=== PATIENT | female | born 1955 | race Caucasian/White ===

== ENCOUNTER → 2017-01-08 | Outpatient (CLI) | payer MEDICAID ==
[2017-01-08 08:33] LABS: ALT 24 U/L (9-52); AST 21 U/L (14-36); Alkaline Phosphatase 50 U/L (38-126); Anion Gap 13 mmol/L; Blood Urea Nitrogen 20 mg/dL (7-17); Calcium 9.7 mg/dL (8.4-10.2); Carbon Dioxide 27 mmol/L (22-30); Chloride 101 mmol/L (98-107); Cholesterol 277 mg/dL (<200); Glucose 173 mg/dL (74-99); HDL Cholesterol 79 mg/dL (40-60); Non-African American GFR(MDRD) >60 (>60 ml/min/1.73 sqM); Potassium 4.1 mmol/L (3.5-5.1); Sodium 141 mmol/L (137-145); Total Bilirubin 0.7 mg/dL (0.2-1.3); Total Protein 7.7 g/dL (6.3-8.2); Triglycerides 108 mg/dL (<150)
[2017-01-08 08:37] LABS: CH 31.1; HCT 45.5 % (34.0-46.0); HDW 2.07; HGB 14.6 gm/dL (11.4-16.0); MCH 31.3 pg (25.0-35.0); MCV 97.8 fL (80.0-100.0); Mean Platelet Volume 6.9; RBC 4.66 m/uL (3.80-5.40); RDW 12.9 % (11.5-15.5); WBC 6.6 k/uL (3.8-10.6)
[2017-01-08 12:28] LABS: Hemoglobin A1C 6.9 % (4.2-6.1)
== END | disposition home or self-care (01) ==
LOC: LABWHC1 07:22
PROVIDERS: ATTEND Internal Medicine Critical Care Medicine
DX: I10 Essential (primary) hypertension (principal)
CPT/HCPCS: 36415; 80053; 80061; 82306; 83036; 84439; 84443; 85027

== ENCOUNTER → 2019-02-04 | Outpatient (CLI) | payer MEDICAID ==
[2019-02-04 09:50] LABS: Basophils % (A) 1 %; Eosinophils # (A) 0.2 k/uL (0-0.7); Eosinophils % (A) 3 %; HCT 45.5 % (34.0-46.0); HGB 14.6 gm/dL (11.4-16.0); Lymphocytes # (A) 1.1 k/uL (1.0-4.8); Lymphocytes % (A) 22 %; MCH 31.9 pg (25.0-35.0); MCHC 32.1 g/dL (31.0-37.0); MCV 99.2 fL (80.0-100.0); Mean Platelet Volume 6.8; Monocytes # (A) 0.4 k/uL (0-1.0); Monocytes % (A) 7 %; Neutrophils # (A) 3.2 k/uL (1.3-7.7); Neutrophils % (A) 63 %; Platelet Count 284 k/uL (150-450); RBC 4.59 m/uL (3.80-5.40); RDW 13.2 % (11.5-15.5); WBC 5.1 k/uL (3.8-10.6)
[2019-02-04 16:06] LABS: Albumin 4.5 g/dL (3.80-4.90); Albumin/Globulin Ratio 2.37 (1.60-3.17); Anion Gap 8.1 mmol/L (4.00-12.00); Calcium 9.7 mg/dL (8.7-10.3); Carbon Dioxide 27.9 mmol/L (21.6-31.8); Globulin 1.9 g/dL (1.6-3.3); LDL Cholesterol,Calculated 170.6 mg/dL (0.0-131.0); Potassium 4.5 mmol/L (3.5-5.5); Total Bilirubin 0.7 mg/dL (0.3-1.2); Total Protein 6.4 g/dL (6.2-8.2); VLDL Calculation 18.4 mg/dL (5.00-40.00)
[2019-02-04 16:12] LABS: T4, Free (Free Thyroxine) 1.5 ng/dL (0.80-1.80)
[2019-02-04 18:01] LABS: Hemoglobin A1C 6.7 % (4.0-6.0)
== END | disposition home or self-care (01) ==
LOC: LABWHC1 08:34
PROVIDERS: ATTEND Internal Medicine Critical Care Medicine
DX: E78.5 Hyperlipidemia, unspecified (principal); E11.9 Type 2 diabetes mellitus without complications; I10 Essential (primary) hypertension; K12.1 Other forms of stomatitis
CPT/HCPCS: 36415; 80053; 80061; 82306; 83036; 84439; 84443; 85025

== ENCOUNTER → 2020-03-08 | Outpatient (CLI) | payer BC ==
[2020-03-08 12:03] LABS: Basophils % (A) 0 %; Eosinophils # (A) 0.1 k/uL (0-0.7); Eosinophils % (A) 2 %; HGB 14.9 gm/dL (11.4-16.0); Lymphocytes # (A) 1.2 k/uL (1.0-4.8); Lymphocytes % (A) 22 %; MCH 31.9 pg (25.0-35.0); MCHC 32.4 g/dL (31.0-37.0); MCV 98.5 fL (80.0-100.0); Mean Platelet Volume 7.4; Monocytes # (A) 0.4 k/uL (0-1.0); Monocytes % (A) 6 %; Neutrophils # (A) 3.8 k/uL (1.3-7.7); Neutrophils % (A) 66 %; Platelet Count 258 k/uL (150-450); RBC 4.67 m/uL (3.80-5.40); RDW 12.3 % (11.5-15.5); WBC 5.7 k/uL (3.8-10.6)
[2020-03-08 19:36] LABS: African American GFR (CKD) 78.3 (60.0-200.0); Albumin 4.6 g/dL (3.80-4.90); Albumin/Globulin Ratio 2.19 (1.60-3.17); Anion Gap 10.5 mmol/L (4.00-12.00); BUN/Creat Ratio 26.67 Ratio (12.00-20.00); Calcium 9.8 mg/dL (8.7-10.3); Carbon Dioxide 29.5 mmol/L (21.6-31.8); Chol/HDL Ratio 4.16; Globulin 2.1 g/dL (1.6-3.3); LDL Cholesterol,Calculated 196.8 mg/dL (0.0-131.0); Non-African American GFR(CKD) 67.6 (60.0-200.0); Potassium 4.2 mmol/L (3.5-5.5); Total Bilirubin 0.6 mg/dL (0.3-1.2); Total Protein 6.7 g/dL (6.2-8.2); VLDL Calculation 18.2 mg/dL (5.00-40.00)
[2020-03-08 19:44] LABS: T4, Free (Free Thyroxine) 1.4 ng/dL (0.80-1.80)
[2020-03-08 21:16] LABS: Hemoglobin A1C 7.6 % (4.0-6.0)
== END | disposition home or self-care (01) ==
LOC: LABWHC1 09:56
PROVIDERS: ATTEND Internal Medicine Critical Care Medicine
DX: E11.9 Type 2 diabetes mellitus without complications (principal); E78.5 Hyperlipidemia, unspecified; I10 Essential (primary) hypertension; J44.9 Chronic obstructive pulmonary disease, unspecified; K12.1 Other forms of stomatitis
CPT/HCPCS: 36415; 80053; 80061; 82306; 83036; 84439; 84443; 85025; 86431

== ENCOUNTER → 2020-04-20 | Outpatient (CLI) | payer BC | END | disposition home or self-care (01) | LOC: CPPFTMAIN 11:45 | PROVIDERS: ATTEND Internal Medicine Critical Care Medicine | DX: J43.9 Emphysema, unspecified (principal) | CPT/HCPCS: 94060; 94726; 94729 ==

== ENCOUNTER → 2020-08-18 | Outpatient (CLI) | payer BC, MEDICARE ==
--- NOTE | 2020-08-22 09:57 | MR ---
EXAMINATION TYPE: MR knee LT wo con DATE OF EXAM: 08/18/2020 COMPARISON: None HISTORY: left knee pain TECHNIQUE: Multiplanar, multisequence imaging of the left knee is performed without IV contrast. Imag es are presented on 08/22/2020, previous dictation cannot be located. FINDINGS: MEDIAL MENISCUS: There is increased signal within the substance of the posterior horn medial meniscus . Findings could be related to degenerative change or internal tear. No communication with the articu lar surface is evident. Anterior horn medial meniscus appears intact. LATERAL MENISCUS: There is minimal increased signal within the substance of the posterior horn medial meniscus, likely on the basis of degenerative changes. Internal derangement or tear could be conside red. Anterior horn lateral meniscus is intact. CRUCIATE LIGAMENTS: The anterior and posterior cruciate ligaments are intact and unremarkable. COLLATERAL LIGAMENTS: The medial collateral ligament and lateral collateral ligament complex are inta ct and unremarkable. EXTENSOR MECHANISM: Some mild increased signal may be near the insertion of the proximal patellar ten don on the patella. Distal quadriceps tendon appears unremarkable EFFUSION: No significant suprapatellar joint effusion. POPLITEAL CYST: No popliteal/mckee cyst. TRICOMPARTMENT SPACES: Preserved CARTILAGE: Preserved BONE MARROW SIGNAL: There is some hyperintense rounded areas within the lateral femoral condyle. This could represent a bone cyst. OTHER: No additional significant abnormality is appreciated. IMPRESSION: 1. Posterior horn medial lateral menisci internal tear type I or degenerative changes. 2. Probable bone cyst within the lateral femoral condyle. 3. Mild increased signal of the insertion of the proximal patellar tendon mild sprain could be consid ered.
== END | disposition home or self-care (01) ==
LOC: RADMRIMAIN 10:32
PROVIDERS: ATTEND Orthopaedic Surgery
DX: R93.7 Abnormal findings on diagnostic imaging of other parts of musculoskeletal system (principal); M25.562 Pain in left knee

== ENCOUNTER → 2020-09-08 | Outpatient (CLI) | payer MEDICARE ==
[2020-09-08 10:33] LABS: Basophils % (A) 0 %; Eosinophils # (A) 0.1 k/uL (0-0.7); Eosinophils % (A) 2 %; HCT 44.9 % (34.0-46.0); HGB 14.9 gm/dL (11.4-16.0); Lymphocytes % (A) 14 %; MCH 31.9 pg (25.0-35.0); MCHC 33.2 g/dL (31.0-37.0); MCV 96.3 fL (80.0-100.0); Monocytes # (A) 0.4 k/uL (0-1.0); Monocytes % (A) 6 %; Neutrophils # (A) 5.2 k/uL (1.3-7.7); Neutrophils % (A) 75 %; Platelet Count 289 k/uL (150-450); RBC 4.66 m/uL (3.80-5.40); RDW 12.6 % (11.5-15.5)
[2020-09-08 15:26] LABS: Prothrombin Time 10.8 sec (9.9-11.9)
[2020-09-08 16:07] LABS: Hemoglobin A1C 6.4 % (4.0-6.0)
[2020-09-08 16:46] LABS: Anion Gap 9.3 mmol/L (4.00-12.00); Carbon Dioxide 29.7 mmol/L (21.6-31.8); Chol/HDL Ratio 3.24; LDL Cholesterol,Calculated 113.6 mg/dL (0.0-131.0); Potassium 5.3 mmol/L (3.5-5.5); VLDL Calculation 18.4 mg/dL (5.00-40.00)
== END | disposition home or self-care (01) ==
LOC: LABWHC1 09:34
PROVIDERS: ATTEND Internal Medicine Critical Care Medicine
DX: I10 Essential (primary) hypertension (principal); E78.5 Hyperlipidemia, unspecified; E11.9 Type 2 diabetes mellitus without complications; R53.83 Other fatigue
CPT/HCPCS: 36415; 80051; 80061; 82947; 83036; 85025; 85610

== ENCOUNTER → 2020-09-08 | Outpatient (CLI) | payer MEDICARE | END | disposition home or self-care (01) | LOC: LABPAT 09:36 | PROVIDERS: ATTEND Orthopaedic Surgery | DX: Z01.812 Encounter for preprocedural laboratory examination (principal) | CPT/HCPCS: 87070 ==

== ENCOUNTER 2020-09-27 11:45 | Day surgery (SDC) | payer MEDICARE ==
[2020-09-20 15:52] VITALS: BMI 20.3
--- NOTE | 2020-09-26 09:15 | HP ---
HISTORY AND PHYSICAL CHIEF COMPLAINT: Left knee pain. HISTORY OF PRESENT ILLNESS: The patient is a 65-year-old retired female who presents with progressive left knee pain secondary to osteoarthrosis for the past several years. It has worsened recently. She is having a difficult time with prolonged weightbearing activities and stairs. She has tried previous medications and injections with only partial temporary relief. PAST MEDICAL HISTORY: Significant for COPD, xwx-lbdxthg-mejwhgdph diabetes, hypertension, and arthritis. PAST SURGICAL HISTORY: Significant for appendectomy, cataract surgery, corneal transplant, hysterectomy, and bilateral oophorectomy. CURRENT MEDICATIONS: 1. Aleve. 2. Metoprolol. 3. Symbicort. 4. Combivent. 5. Hydrochlorothiazide. 6. Metformin. 7. [place]. ALLERGIES: She denies drug allergies. FAMILY HISTORY: Significant for stroke, diabetes, hypertension, and cancer. SOCIAL HISTORY: Significant for previous tobacco use. REVIEW OF SYSTEMS: Sixteen-point review of systems otherwise reviewed and is noncontributory. PHYSICAL EXAMINATION: On examination, the patient is approximately 5 feet 11 inches, 155 pounds of mesomorphic habitus. HEENT exam is nonfocal. NECK is supple. She has painless passive motion of her left hip. Straight leg raise is negative. Active motion left knee -4 to 145 degrees of flexion. She has a trace effusion. She is tender about the medial joint line. Collaterals are stable, Can is negative, Olivier's is equivocal. Her distal neurovascular appears intact in the left lower extremity. Previous x-rays of the left knee obtained in the office show significant joint space narrowing of all 3 compartments, subchondral sclerosis in the medial compartments noted. MRI report left knee shows evidence of a cystic area involving the posterior lateral femoral condyle in addition to significant joint space narrowing and cartilage loss. IMPRESSION: 1. Left knee severe tricompartmental osteoarthrosis. 2. History of chronic obstructive pulmonary disease. 3. History of dcd-kehlrym-wmjnsqhqc diabetes. RECOMMENDATIONS: I talked to the patient at length regarding her condition and treatment options. At this point, she remains quite symptomatic despite extensive previous conservative measures. After thorough discussion, she opts to proceed with surgery. We will plan to proceed with left total knee arthroplasty. Risks and benefits were discussed at length in layman's terms. The patient underwent preoperative medical evaluation by Dr. Barrientos. MMODL / IJN: [id number] /
[~2020-09-27 11:45] MED LIST: ACETAMINOPHEN TAB 500 MG TAB PO PRN; MELOXICAM 7.5 MG TAB PO PRN; ROPIVACAINE 246.25 MG, EPINEPHrine 0.5 MG, KETOROLAC 30 MG, cloNIDine HCL/PF 80 MCG, WA... MISCELLANE PRN; TRANEXAMIC ACID 1,000 MG in SODIUM CHLORIDE 0.9% 100 ML IVPB PRN
[2020-09-27] MEDS ORDERED: DEXAMETHASONE SOD PHOSPHATE 4 MG/ML 1 ML VIAL IV ONE (12:14)
[2020-09-27] MEDS ORDERED: LACTATED RINGERS 1,000 ML IV SCH (12:14)
[2020-09-27] MEDS ORDERED: LIDOCAINE 1% (10MG/ML) FOR IV START INTRADERMA PRN (12:14)
[2020-09-27] MEDS ORDERED: MIDAZOLAM 2 MG/2 ML VIAL IV PRN (12:14)
[2020-09-27] MEDS ORDERED: HYDROmorphone 0.5 MG/0.5 ML SYRINGE IVP PRN ×2 (12:14→15:10)
[2020-09-27] MEDS ORDERED: ONDANSETRON 4 MG/2 ML VIAL IVP ONE (12:14)
[2020-09-27 12:27] LABS: Glucose,Whole Blood 164 mg/dL (75-99)
[2020-09-27] MEDS ORDERED: MIDAZOLAM 2 MG/2 ML VIAL IVP ONE (12:33)
[2020-09-27] MEDS ORDERED: fentaNYL (PF) 50 MCG/ML 2 ML AMP IVP ONE (12:35)
[2020-09-27] MEDS ORDERED: MIDAZOLAM 2 MG/2 ML VIAL ONE (13:20)
[2020-09-27] MEDS ORDERED: SODIUM CHLORIDE 0.9% 100 ML BAG ONE (13:20)
[2020-09-27] MEDS ORDERED: TRANEXAMIC ACID 1,000 MG/10 ML VIAL ONE (13:20)
[2020-09-27] MEDS ORDERED: PHENYLEPHRINE 10 MG/ML VIAL ONE (13:20)
[2020-09-27] MEDS ORDERED: ePHEDrine SULFATE/0.9% NACL/PF 50 MG/5 ML SYRINGE IV ONE (13:20)
[2020-09-27] MEDS ORDERED: WATER FOR INJECTION, STERILE 10 ML VIAL IV ONE (13:20)
[2020-09-27] MEDS ORDERED: PROPOFOL 10 MG/ML 20 ML VIAL IV ONE (13:20)
[2020-09-27] MEDS ORDERED: ceFAZolin 3,000 MG in SODIUM CHLORIDE 0.9% IRRIGATIO 3,000 ML IRRIGATION ONE (13:56)
[2020-09-27] MEDS ORDERED: ROPIVACAINE 0.2%-NS ON-Q PUMP 1,090 MG, EMPTY PAIN BALL 1 EACH MISCELLANE PRN (13:56)
--- NOTE | 2020-09-27 13:58 | P.ANPRN ---
Procedure Note - Anesthesia - Nerve Block Performed Left Adductor Canal Time Out Performed: Yes (12:32) Date of Procedure: 09/27/20 Procedure Start Time: Procedure Stop Time: :47 Location of Patient: PreOp Indication: Acute Post-Operative Pain, Requested by Surgeon (Dr Woodson) Sedation Type: Sedate with meaningful contact maintained Preparation: Sterile Prep, Sterile Dressing Position: Supine Catheter: Indwelling Needle Types: Pajunk Needle Gauge: 21 Ultrasound used to visualize needle placement: Yes Ultrasound used to observe medication spread: Yes Injectate: 0.5% Ropivacaine (see comment for volume) (20cc) Blood Aspirated: No Pain Paresthesia on Injection Noted: No Resistance on Injection: Normal Image Stored and Saved: Yes Events: Uneventful and Well Tolerated
[2020-09-27] MEDS ORDERED: LACTATED RINGERS 1,000 ML IV ONE (14:21)
[2020-09-27] MEDS ORDERED: NALOXONE 0.4 MG/ML 1 ML VIAL IV PRN (15:10)
[2020-09-27] MEDS ORDERED: MAGNESIUM HYDROXIDE 2,400 MG/10 ML CUP PO PRN (15:10)
[2020-09-27] MEDS ORDERED: HYDROmorphone 1 MG/ML 1 ML SYRINGE IVP PRN (15:10)
[2020-09-27] MEDS ORDERED: ONDANSETRON 4 MG/2 ML VIAL IVP PRN (15:10)
[2020-09-27] MEDS ORDERED: traMADol 50 MG TAB PO PRN (15:10)
[2020-09-27] MEDS ORDERED: ACETAMINOPHEN TAB 325 MG TAB PO PRN (15:10)
--- NOTE | 2020-09-27 15:33 | P.OP ---
Date of Procedure: 09/27/20 Preoperative Diagnosis: Left knee severe tricompartmental osteoarthrosis Postoperative Diagnosis: Same Procedure(s) Performed: Left total knee arthroplastycementedcruciate retaining Implants: Depuy Attune size 6 cemented femoral component, size 6 cemented tibial component, 9 mm articular surface, 35 mm cemented patellar component. This is a cruciate retaining implant. Anesthesia: regional, local, spinal Surgeon: Juan Luis Woodson Microsystems Engineer #1: Taj Santos Estimated Blood Loss (ml): 50 Pathology: other (Bone fragments) Condition: stable Disposition: PACU Indications for Procedure: Patient is a 65-year-old female who presents with progressive/persistent left knee pain secondary to osteoporosis despite conservative measures. A discussion of the risks and benefits of operative intervention versus continued conservat charity measures was made with patient. She opted to proceed with surgery. Operative risks to include infection, neurovascular injury, development of blood clots, possible component loosening, possible component failure need for subsequent procedures was discussed. Informed consent was obtained. Operative Findings: As below Description of Procedure: The patient was brought to the operating room, and after induction of spinal anesthesia the left lower extremity was prepped and draped in a normal fashion. The tourniquet was inflated to 270 mmHg. A longitudinal incision extending 3 finger breaths above the superior pole of the patella extending to the medial aspect the tibial tubercle was then made. The skin and subcutaneous tissues were divided sharply. Electrocautery was used for hemostasis. A medial parapatellar arthrotomy was then performed. The medial soft tissues to include the superficial and deep portions of the medial collateral ligament as well as the medial hamstring tendons were elevated subperiosteally. The proximal medial tibia osteophytes were carefully removed. The patella was everted. The knee was flexed. A portion of the retropatellar fat pad was excised sharply. The anterior cruciate ligament was sacrificed. A starting hole was made in the distal femur 1 cm anterior to the posterior cruciate origin. An intramedullary femoral guide was gently inserted planning on 5 valgus distal cut with 9 mm distal resection. The cutting block was pinned in place. The distal cut was then made. The posterior referencing sizing guide was utilized. 3 of external rotation was built into the system and verified off the trans- epicondylar axis and the posterior condyles. I felt size 6 was most appro priate. The cutting block was pinned in place. The anterior, posterior, and chamfer cuts were then made. The bone fragments were removed. A sulcus cut was then made with the appropriate guide. The trial size 6 femoral component was then placed and was fully seated. There was good anterior to posterior and medial to lateral fit. The distal peg holes were then drilled. The trial component was then removed. Attention was then paid towards preparing the proximal tibia. An extra medullary guide was utilized in line with the tibial shaft and second metatarsal distally. A 7 posterior slope was planned. I planned on 2 mm resection from the medial compartment. The cutting block was pinned in place. The proximal tibial cut was then made. The bone was removed in one fragment. The remnants of the medial and lateral menisci were excised the capsule junction with electrocautery. The tibia sized most appropriately at size 6. The posterior osteophytes off the distal femur were carefully removed with a curved osteotome. The trial tibial and femoral components were placed along with a 9 millimeters articular surface. I was able to obtain full flexion and extension with good stability with varus and valgus stress. After several flexion and extension cycles, the tibial rotation was marked with electrocautery in line with the medial one third of the tibial tubercle. Attention was then paid towards preparing the patella. A patella reamer was utilized taking this down to 14 mm of bone stock. A good flush cut was made. The patella sized most appropriately at 35 millimeters. The peg holes were then drilled. The trial component was placed. The knee was taken through a range of motion. I had good patellofemoral tracking with no hands technique. The trial components were then removed. The tibia was prepared in the appropriate rotation with appropriate drill and keel punch. The flexion and extension gaps were checked and felt to be symmetric. The posterior soft tissues were injected with ropivacaine. The bony surfaces were prepared with pulsatile lavage and dried. The deep tibial component was then cemented in place and was fully seated. Excess cement was removed. The femoral component was cemented in place and was fully seated. Again excess cement was removed. The trial 9 millimeters surface was then inserted in the knee was put in full extension. The patella component was cemented in place. After the cement had sufficiently hardened, the knee was again taken through a range of motion. Again there was good stability in flexion and extension with varus and valgus stress. The trial articular surface was then removed. The final articular surface was placed and was impacted. Care was taken to avoid any soft tissue interposition. Pulsatile lavage was again utilized. The tourniquet was deflated with approximately 60 minutes total tourniquet time. There was minimal drainage therefore a deep drain was not placed. The medial parapatellar arthrotomy was then closed with #2 Ethibond suture. The subcutaneous tissues were reapproximated interrupted 2-0 Vicryl sutures. The skin was reapproximated with 3-0 subarticular strata fix suture. Skin tape and adhesive was applied. A sterile dressing was applied. The patient was then awoken from sedation and transferred to recovery room in good condition. Blood loss was estimated at 50 milliliters. No complications were incurred. Sponge and needle counts were correct at the end the case. Param ALBERTO assisted during the major components this case to include exposure, bone resection, and implantation.
--- NOTE | 2020-09-27 16:04 | XR ---
EXAMINATION TYPE: XR knee limited LT DATE OF EXAM: 09/27/2020 CLINICAL HISTORY: Left knee pain and arthritis status post total knee replacement. TECHNIQUE: Portable AP and crosstable lateral views of the left knee are obtained immediately postop eratively. COMPARISON: Outside left knee x-ray April 21, 2020 FINDINGS: Metallic hardware from total left knee arthroplasty is seen and appears satisfactory in al ignment and position. There is evidence of recent surgery with diffuse subcutaneous gas and soft tis jacob swelling noted. [place] osseous structures are somewhat demineralized. IMPRESSION: METALLIC HARDWARE FROM TOTAL LEFT KNEE ARTHROPLASTY IS SATISFACTORY IN ALIGNMENT.
[2020-09-27 16:07] LABS: Glucose,Whole Blood 94 mg/dL (75-99)
[2020-09-27] MEDS: LACTATED RINGERS 1,000 ML IV SCH (16:12)
[2020-09-27 17:11] LABS: Glucose,Whole Blood 112 mg/dL (75-99)
[2020-09-27] MEDS: HYDROcodone/APAP 7.5-325MG 1 EACH TAB PO PRN ×2 (18:36→22:30)
[2020-09-27] MEDS: METOPROLOL TARTRATE 50 MG TAB PO SCH (20:42)
[2020-09-27] MEDS: SYMBICORT 160-4.5 MCG INHALER INHALATION SCH (20:47)
[2020-09-27] MEDS: IPRATROPIUM-ALBUTEROL 3 ML NEB INHALATION SCH (20:47)
[2020-09-27] MEDS ORDERED: SENNOSIDES-DOCUSATE SODIUM 1 EACH TAB PO SCH (21:00)
[2020-09-27] MEDS ORDERED: ATORVASTATIN 40 MG TAB PO SCH (21:00)
[2020-09-27 22:26] LABS: Glucose,Whole Blood 208 mg/dL (75-99)
[2020-09-28 02:55] VITALS: RESP 17
[2020-09-28] MEDS: HYDROcodone/APAP 7.5-325MG 1 EACH TAB PO PRN ×2 (05:30→11:22)
[2020-09-28 06:57] LABS: Glucose,Whole Blood 136 mg/dL (75-99)
--- NOTE | 2020-09-28 07:03 | P.PN ---
Progress Note - Text Progress Note Date: 09/28/20 Patient was seen at bedside at 645 AM. Patient is postop day 1 from left total knee replacement with adductor canal catheter placed for pain . Ropivacaine 0.2% infusion running at 8 ml per hour. VAS score is 1. Patient denies side effects. Lower extremity sensation and motor function is intact. Patient has ambulated. Dressing clean dry and intact over catheter site
[2020-09-28 07:08] LABS: Basophils % (A) 0 %; Eosinophils # (A) 0.1 k/uL (0-0.7); Eosinophils % (A) 1 %; HCT 34.5 % (34.0-46.0); Lymphocytes # (A) 1.4 k/uL (1.0-4.8); Lymphocytes % (A) 13 %; MCH 31.1 pg (25.0-35.0); MCV 97.2 fL (80.0-100.0); Mean Platelet Volume 7.3; Monocytes # (A) 0.7 k/uL (0-1.0); Monocytes % (A) 6 %; Neutrophils # (A) 8.3 k/uL (1.3-7.7); Neutrophils % (A) 78 %; Platelet Count 219 k/uL (150-450); RBC 3.54 m/uL (3.80-5.40); RDW 12.5 % (11.5-15.5); WBC 10.7 k/uL (3.8-10.6)
[2020-09-28] MEDS ORDERED: PANTOPRAZOLE 40 MG TABLET PO SCH (07:30)
[2020-09-28 07:35] VITALS: BP 116/71; TEMP 98.3
[2020-09-28] MEDS: METOPROLOL TARTRATE 50 MG TAB PO SCH (07:52)
[2020-09-28] MEDS: IPRATROPIUM-ALBUTEROL 3 ML NEB INHALATION SCH ×2 (07:56→11:29)
[2020-09-28] MEDS: SYMBICORT 160-4.5 MCG INHALER INHALATION SCH (07:56)
[2020-09-28] MEDS ORDERED: NAPROXEN 250 MG TAB PO SCH (09:00)
[2020-09-28] MEDS ORDERED: CHOLECALCIFEROL 1,000 UNIT TAB PO SCH (09:00)
[2020-09-28] MEDS ORDERED: metFORMIN 500 MG TAB PO SCH (09:00)
[2020-09-28] MEDS ORDERED: LORATADINE-PSEUDOEPH 5-120 MG 1 EACH TAB.ER.12H PO SCH (09:00)
[2020-09-28] MEDS ORDERED: ENOXAPARIN 30 MG/0.3 ML SYRINGE SQ SCH (09:00)
[2020-09-28] MEDS ORDERED: guaiFENesin 600 MG TABLET.ER PO SCH (09:00)
[2020-09-28 09:57] LABS: African American GFR (CKD) 54.9 (60.0-200.0); Anion Gap 12.4 mmol/L (4.00-12.00); BUN/Creat Ratio 19.17 Ratio (12.00-20.00); Calcium 8.8 mg/dL (8.7-10.3); Carbon Dioxide 26.6 mmol/L (21.6-31.8); Non-African American GFR(CKD) 47.4 (60.0-200.0); Potassium 4.2 mmol/L (3.5-5.5)
--- NOTE | 2020-09-28 10:18 | P.PN ---
Subjective Progress Note Date: 09/28/20 Principal diagnosis: Status post left total knee arthroplasty Patient is evaluated today at bedside, she is resting comfortably. She did very well with physical therapy. Her pain is controlled with current medication. Currently having no chest pain, shortness of breath, fever chills, nausea or vomiting. Objective - Vital Signs Vital signs: Vital Signs Temp 98.3 F 09/28/20 07:34 Pulse 84 09/28/20 08:09 Resp 17 09/28/20 07:34 BP 116/71 09/28/20 07:34 Pulse Ox 93 L 09/28/20 02:00 Intake & Output 09/27/20 09/28/20 09/28/20 18:59 06:59 18:59 Intake Total 1921 400 Output Total 50 Balance 1871 400 Weight 64.5 kg Intake: IV 1920 Intake, IV Titration 100 Amount ceFAZolin 2 gm In Sodium 100 Chloride 0.9% 50 ml @ 100 mls/hr IVPB Q8H AMINA Rx#: [id number] Oral 300 Output: Estimated Blood Loss 50 Other: # Voids 2 - Exam Left lower extremity: Incision is clean, dry, and intact. The exofin fusion tape is in good condition. There is minimal soft tissue swelling and ecchymosis surrounding the medial and lateral aspects of the incision. Calf is soft, no tenderness with palpation. Plantar flexion, dorsiflexion, EHL, FHL are intact. Sensory exam to light touch throughout the extremity is intact, dorsal pedis pulses 2+. - Labs CBC & Chem 7: 09/28/20 06:17 09/28/20 06:17 Labs: Abnormal Lab Results - Last 24 Hours (Table) 09/27/20 09/27/20 09/27/20 Range/Units 12:22 17:09 22:24 WBC (3.8-10.6) k/uL RBC (3.80-5.40) m/uL Hgb (11.4-16.0) gm/dL Neutrophils # (1.3-7.7) k/uL Anion Gap (4.00-12.00) mmol/L Est GFR (CKD-EPI)AfAm (60.0-200.0) Est GFR (CKD-EPI)NonAf (60.0-200.0) Glucose (70-110) mg/dL POC Glucose (mg/dL) 164 H 112 H 208 H (75-99) mg/dL 09/28/20 09/28/20 09/28/20 Range/Units 06:17 06:17 06:56 WBC 10.7 H (3.8-10.6) k/uL RBC 3.54 L (3.80-5.40) m/uL Hgb 11.0 L D (11.4-16.0) gm/dL Neutrophils # 8.3 H (1.3-7.7) k/uL Anion Gap 12.40 H (4.00-12.00) mmol/L Est GFR (CKD-EPI)AfAm 54.9 L (60.0-200.0) Est GFR (CKD-EPI)NonAf 47.4 L (60.0-200.0) Glucose 144 H (70-110) mg/dL POC Glucose (mg/dL) 136 H (75-99) mg/dL Assessment and Plan Assessment: Status post left total knee arthroplasty Plan: Pain control, continue with oral medication, plan for discharge home on [place] 7.5 mg/325 mg DVT prophylaxis, aspirin 81 mg twice a day for a month Home health care at discharge Medical recommendations Wound care instructions were discussed, icing and elevating techniques discussed Plan for discharge home today Time with Patient: Less than 30
[2020-09-28] MEDS: LACTATED RINGERS 1,000 ML IV SCH (10:21)
--- NOTE | 2020-09-28 10:21 | P.DS ---
Providers Date of admission: 09/27/2020 Expected date of discharge: 09/28/20 Attending physician: Juan Luis Woodson Consults: 09/27/20 15:10 Consult Physician Routine Consulting Provider: Gabriel Barrientos Reason/Comments: medical management Do you want consulting provider notified?: Yes Primary care physician: Gabriel Barrientos Hospital Course: Date of admission: 09/27/2020 Date of discharge: 09/28/2020 Admission diagnosis: Status post left total knee arthroplasty Discharge diagnosis: Same Attending physician: Dr. Woodson Surgical procedures: Left total knee arthroplasty Brief history: Patient is a 65-year-old female with a history of progressive primary left knee osteoarthritis. At this point patient has failed conservative treatment measures and has opted to proceed with a elective left total knee arthroplasty. Hospital course: Details of patient's surgery can be found in operative report. Patient tolerated the procedure well and was subsequently transported to orthopedic floor. Patient's orthopeidc and medical care was provided daily. Patient had daily laboratory tests performed for evaluation of overall blood counts. Patient had daily physical therapy to include strengthening range of motion as well as education with walker ambulation. Patient was treated with Lovenox for their postoperative DVT prophylaxis during their inpatient stay. Patient was noted to have a relatively uneventful postoperative course. Patient reported satisfactory pain control with oral pain medications by postoperative day 0. Patient showed satisfactory progress with physical therapy. Patient moved steadily through the program and had no difficulty meeting the goals by postoperative day 1. Given patient's otherwise satisfactory course and having met physical therapy goals, plan is to discharge patient home on postoperative day 1. Discharge condition/disposition: Patient will be discharged home in stable condition. Discharge medications: Instructions are given on resumption of patient's normal daily medications per primary care recommendation, in addition patient will be prescribed [place] 7.5 mg/325 mg, Colace 100 mg, aspirin 81 mg. Discharge instructions: 1. Wound care and infection precautions, keep incision dry and covered while showering, no lotions, creams, moisturizers. No soaking, tubs, pools, hottubs. Do not scrub over the incision. 2. Weight-bear as tolerated with walker / cane until follow-up. 3. Ice and elevate when necessary. Do not exceed 20 minutes per hour with ice pack. 4. Utilize compression sleeve until seen at first follow up appointment. 5. Visiting nursing care. 6. Home physical therapy including home CPM. 7. Pain meds and anticoagulants per prescription. 8. Pain medication has potential to cause constipation. Increase oral fluid and fiber intake. Contact primary care provider if you have not had a bowel movement within 48 hours after discharge 9. No anti-inflammatory medication until discussed at first post operative visit, this including Motrin, Aleve, Mobic, Diclofenac. 10. Follow up in office at 2 weeks postop with Param Santos PA-C 11. Follow up with your primary care doctor 7-10 days after discharge. 12. Contact [facility] with any questions, . Procedures: Left total knee arthroplasty Patient Condition at Discharge: Good Plan - Discharge Summary Discharge Rx Participant: Yes New Discharge Prescriptions: New Aspirin [Adult Low Dose Aspirin EC] 81 mg PO BID #60 tablet. Docusate [Colace] 100 mg PO DAILY #30 capsule HYDROcodone/APAP 7.5-325MG [[place] 7.5] 1 - 2 each PO Q6HR PRN #42 tab PRN Reason: Pain Discontinued HYDROcodone/APAP 5-325MG [[place] 5-325] 1 tab PO Q4-6H PRN PRN Reason: Pain No Action Loratadine-Pseudoeph 10-240 mg [Claritin-D 24 Hour] 1 tab PO DAILY guaiFENesin [Mucinex] 1,200 mg PO DAILY Ipratropium/Albuterol Sulfate [Combivent Respimat Inhaler] 1 puff INHALATION QID Naproxen Sodium [Aleve] 220 mg PO DAILY Cholecalciferol [Vitamin D3 (25 Mcg = 1000 Iu)] 1,000 unit PO DAILY Budesonide-Formot 160-4.5 Mcg [Symbicort 160-4.5 Mcg Inhaler] 2 puff INHALATION BID metFORMIN HCL 1,000 mg PO BID hydroCHLOROthiazide 50 mg PO DAILY Simvastatin [Zocor] 80 mg PO HS Omeprazole 20 mg PO DAILY Metoprolol Tartrate [Lopressor] 150 mg PO BID Discharge Medication List Budesonide-Formot 160-4.5 Mcg [Symbicort 160-4.5 Mcg Inhaler] 2 puff INHALATION BID 09/20/20 [History] Cholecalciferol [Vitamin D3 (25 Mcg = 1000 Iu)] 1,000 unit PO DAILY 09/20/20 [History] Ipratropium/Albuterol Sulfate [Combivent Respimat Inhaler] 1 puff INHALATION QID 09/20/20 [History] Loratadine-Pseudoeph 10-240 mg [Claritin-D 24 Hour] 1 tab PO DAILY 09/20/20 [History] Metoprolol Tartrate [Lopressor] 150 mg PO BID 09/20/20 [History] Naproxen Sodium [Aleve] 220 mg PO DAILY 09/20/20 [History] Omeprazole 20 mg PO DAILY 09/20/20 [History] Simvastatin [Zocor] 80 mg PO HS 09/20/20 [History] guaiFENesin [Mucinex] 1,200 mg PO DAILY 09/20/20 [History] hydroCHLOROthiazide 50 mg PO DAILY 09/20/20 [History] metFORMIN HCL 1,000 mg PO BID 09/20/20 [History] Aspirin [Adult Low Dose Aspirin EC] 81 mg PO BID #60 tablet.dr 09/28/20 [Rx] Docusate [Colace] 100 mg PO DAILY #30 capsule 09/28/20 [Rx] HYDROcodone/APAP 7.5-325MG [[place] 7.5] 1 - 2 each PO Q6HR PRN #42 tab 09/28/20 [Rx] Follow up Appointment(s)/Referral(s): [facility], [NON-STAFF] - As Needed Taj Santos PAC [PHYSICIAN DESSERT CUP MACHINE FEEDER] - 2 Weeks Activity/Diet/Wound Care/Special Instructions: Orthopedic Discharge Instructions: 1. Wound care and infection precautions, keep incision dry and covered while showering, no lotions, creams, moisturizers. No soaking, pools, hot tubs. Do not scrub over incision. 2. Weight-bear as tolerated with walker / cane until follow-up. 3. Ice and elevate when necessary. Do not exceed 20 minutes per hour with ice pack. 4. Utilize compression sleeve until seen at first follow up appointment. 5. Pain meds and anticoagulants per prescription. 6. Pain medication has potential to cause constipation. Increase oral fluid and fiber intake. Contact primary care provider if you have not had a bowel movement within 48 hours after discharge. 7. No anti-inflammatory medication until discussed at first post operative visit, this including Motrin, Aleve, Mobic, Diclofenac. 8. Follow up in office at 2 weeks postop with Param Santos PA-C 9. Follow up with your primary care doctor 7-10 days after discharge. 10. Contact [facility] with any questions, . Discharge Disposition: HOME WITH HOME HEALTH SERVICES
[2020-09-28 11:35] LABS: Glucose,Whole Blood 223 mg/dL (75-99)
[2020-09-28 11:44] VITALS: PULSE 82
[2020-09-28] MEDS ORDERED: INSULIN ASPART (NovoLOG) 100 UNIT/ML VIAL SQ SCH (12:30)
--- NOTE | 2020-09-28 16:04 | P.CONS ---
History of Present Illness - Reason for Consult Consult date: 09/28/20 Medical management COPD, diabetes mellitus type II, hypertension Requesting physician: Juan Luis Woodson - History of Present Illness This is a 65-year-old female who was recently admitted under orthopedic services Dr. Woodson and consulted for medical management as patient has a history of chronic obstructive pulmonary disease, diabetes mellitus type 2, hypertension, and arthritis. Patient underwent left total knee arthroplasty and tolerated the procedure well. Blood pressure medications were resumed and patient was monitored closely with Accu-Cheks before meals at bedtime and metformin was held and patient was placed on sliding scale although blood sugars are well- controlled not requiring any insulin. Patient will resume home medications upon discharge. Patient does follow with Dr. Gabriel Barrientos in the outpatient setting as her primary care physician. Patient is up and walking with a walker with physical therapy. Patient states she is going to stay with her family member for a few days to assist her with ADLs. Patient does have a pain pump to the left knee and will be following up with orthopedics in the outpatient setting. Patient states she has inhalers and follows regularly with Dr. Barrientos. Incentive spirometer at the bedside and instructed patient to continue using at least 10 times every hour while awake even in the outpatient setting. Discussed with the patient about increasing activity as tolerated. Currently patient denies any chest pain, shortness of breath, or palpitations. Patient is afebrile. No reports of nausea or vomiting and patient has been tolerating diet. Patient also reports to passing gas with no reports of bowel movements this morning. Review of Systems All systems: negative Constitutional: Denies chills, Denies fever Ears, nose, mouth and throat: Denies headache, Denies sore throat Cardiovascular: Denies chest pain, Denies shortness of breath Respiratory: Denies cough Gastrointestinal: Denies abdominal pain, Denies diarrhea, Denies nausea, Denies vomiting Genitourinary: Denies dysuria, Denies hematuria Musculoskeletal: Denies myalgias Integumentary: Denies pruritus, Denies rash Neurological: Denies numbness, Denies weakness Psychiatric: Denies anxiety, Denies depression Endocrine: Denies fatigue, Denies weight change Past Medical History Past Medical History: COPD, Diabetes Mellitus, GERD/Reflux, Hyperlipidemia, Hypertension, Osteoarthritis (OA), Skin Disorder Additional Past Medical History / Comment(s): Psorasis. Varicose veins. History of Any Multi-Drug Resistant Organisms: None Reported Past Surgical History: Appendectomy, Hysterectomy Additional Past Surgical History / Comment(s): Right cataract surgery, right cornea transplant, 8 other surgeries on right eye. Past Anesthesia/Blood Transfusion Reactions: No Reported Reaction Past Psychological History: No Psychological Hx Reported Smoking Status: Former smoker Past Alcohol Use History: Rare Additional Past Alcohol Use History / Comment(s): Quit smoking 16 yrs ago. Past Drug Use History: Marijuana Additional Drug Use History / Comment(s): Uses Edibles at hs. Aware no use 24 hrs prior to procedure. - Past Family History Brother(s) Family Medical History: Cancer Additional Family Medical History / Comment(s): Lung cancer. Medications and Allergies Home Medications Medication Instructions Recorded Confirmed Type Budesonide-Formot 160-4.5 Mcg 2 puff INHALATION BID 09/20/20 09/27/20 History [Symbicort 160-4.5 Mcg Inhaler] Cholecalciferol [Vitamin D3 (25 1,000 unit PO DAILY 09/20/20 09/27/20 History Mcg = 1000 Iu)] Ipratropium/Albuterol Sulfate 1 puff INHALATION QID 09/20/20 09/27/20 History [Combivent Respimat Inhaler] Loratadine-Pseudoeph 10-240 mg 1 tab PO DAILY 09/20/20 09/20/20 History [Claritin-D 24 Hour] Metoprolol Tartrate [Lopressor] 150 mg PO BID 09/20/20 09/27/20 History Omeprazole 20 mg PO DAILY 09/20/20 09/20/20 History Simvastatin [Zocor] 80 mg PO HS 09/20/20 09/20/20 History guaiFENesin [Mucinex] 1,200 mg PO DAILY 09/20/20 09/20/20 History hydroCHLOROthiazide 50 mg PO DAILY 09/20/20 09/20/20 History metFORMIN HCL 1,000 mg PO BID 09/20/20 09/20/20 History Aspirin [Adult Low Dose Aspirin EC] 81 mg PO BID #60 tablet. 09/28/20 Rx Docusate [Colace] 100 mg PO DAILY #30 capsule 09/28/20 Rx HYDROcodone/APAP 7.5-325MG [[place] 1 - 2 each PO Q6HR PRN #42 tab 09/28/20 Rx 7.5] Allergies Allergy/AdvReac Type Severity Reaction Status Date / Time No Known Allergies Allergy Verified 09/27/20 12:18 Physical Exam Vitals: Vital Signs Temp Pulse Pulse Pulse Resp BP Pulse Ox 09/28/20 11:43 82 09/28/20 11:32 86 09/28/20 08:09 84 09/28/20 07:59 78 09/28/20 07:34 98.3 F 74 17 116/71 09/28/20 02:00 98.1 F 77 17 141/79 93 L 09/27/20 21:05 83 09/27/20 20:47 83 09/27/20 20:05 20 09/27/20 19:20 98.4 F 82 16 143/77 92 L 09/27/20 18:51 85 154/80 95 09/27/20 18:21 84 154/83 95 09/27/20 17:51 87 135/72 95 09/27/20 17:36 86 164/71 94 L 09/27/20 17:21 81 149/84 94 L 09/27/20 17:06 75 153/85 96 09/27/20 16:51 74 155/88 94 L 09/27/20 16:36 71 20 145/86 94 L 09/27/20 16:15 62 16 144/81 95 09/27/20 16:00 67 16 144/74 93 L Intake and Output 09/28/20 09/28/20 09/28/20 06:59 14:59 22:59 Intake Total 400 Balance 400 Intake: Intake, IV Titration 100 Amount ceFAZolin 2 gm In Sodium 100 Chloride 0.9% 50 ml @ 100 mls/hr IVPB Q8H [facility] Rx#: [id number] Oral 300 Other: # Voids 2 Gen: This is a 65-year-old female awake, alert and oriented 3, well-developed, well-nourished. Temp is 98.3F, pulse is 84, respirations are 17, blood pressure is 116/71, oxygen saturation is 91% on room air HEENT: Head is atraumatic, normocephalic. Pupils equal, round. Sclerae is anicteric. NECK: Supple. No JVD. No lymphadenopathy. No thyromegaly. LUNGS: Diminished breath sounds bilaterally with no wheezing or rhonchi noted. No intercostal retractions. HEART: S1, S2 are muffled. ABDOMEN: Soft. Bowel sounds are present. No masses. No tenderness. EXTREMITIES: No pedal edema. No calf tenderness. Left knee surgical dressing is dry and intact with pain pump noted NEUROLOGICAL: Patient is awake, alert and oriented x3. Cranial nerves 2 through 12 are grossly intact. Results CBC & Chem 7: 09/28/20 06:17 09/28/20 06:17 Labs: Abnormal Lab Results - Last 24 Hours (Table) 09/27/20 09/27/20 09/28/20 Range/Units 17:09 22:24 06:17 WBC 10.7 H (3.8-10.6) k/uL RBC 3.54 L (3.80-5.40) m/uL Hgb 11.0 L D (11.4-16.0) gm/dL Neutrophils # 8.3 H (1.3-7.7) k/uL Anion Gap (4.00-12.00) mmol/L Est GFR (CKD-EPI)AfAm (60.0-200.0) Est GFR (CKD-EPI)NonAf (60.0-200.0) Glucose (70-110) mg/dL POC Glucose (mg/dL) 112 H 208 H (75-99) mg/dL 09/28/20 09/28/20 09/28/20 Range/Units 06:17 06:56 11:34 WBC (3.8-10.6) k/uL RBC (3.80-5.40) m/uL Hgb (11.4-16.0) gm/dL Neutrophils # (1.3-7.7) k/uL Anion Gap 12.40 H (4.00-12.00) mmol/L Est GFR (CKD-EPI)AfAm 54.9 L (60.0-200.0) Est GFR (CKD-EPI)NonAf 47.4 L (60.0-200.0) Glucose 144 H (70-110) mg/dL POC Glucose (mg/dL) 136 H 223 H (75-99) mg/dL Assessment and Plan Assessment: Status post left total knee arthroplasty Diabetes mellitus type 2 Hypertension Hyperlipidemia COPD not in acute exacerbation DVT prophylaxis GI prophylaxis Plan: Continue current medications, management, and symptomatic treatment. PT/OT to evaluate the patient and patient has been up and walking with a walker with no difficulties. Pain management per primary service. Instructed the patient to continue using incentive spirometer every hour at least 10 times while awake. Patient's blood sugars have been slightly on the lower side and instructed to continue monitoring Accu-Cheks before meals at bedtime and keep a diary for primary care follow-up. Also instructed the patient to increase activity slowly as tolerated. Patient reports passing gas although no reports of bowel movements at this time. Patient is tolerating diet with no nausea or vomiting noted. Will continue to follow along with orthopedic surgery during hospitalization. Home medications resumed. Further recommendations to follow. Patient states she is being discharged today. Thank you for this consultation.
== END 2020-09-28 12:29 | disposition home health service (06) ==
LOC: OR 11:45 → 4SSUR 15:42 → OR 09-28 12:29
PROVIDERS: ATTEND Orthopaedic Surgery
DX: M17.12 Unilateral primary osteoarthritis, left knee (principal); M25.762 Osteophyte, left knee; I10 Essential (primary) hypertension; E78.5 Hyperlipidemia, unspecified; J44.9 Chronic obstructive pulmonary disease, unspecified; E11.9 Type 2 diabetes mellitus without complications; K21.9 Gastro-esophageal reflux disease without esophagitis; M19.90 Unspecified osteoarthritis, unspecified site; M81.0 Age-related osteoporosis without current pathological fracture; L40.9 Psoriasis, unspecified; Z79.51 Long term (current) use of inhaled steroids; Z79.84 Long term (current) use of oral hypoglycemic drugs; Z79.899 Other long term (current) drug therapy; Z87.891 Personal history of nicotine dependence; Z90.710 Acquired absence of both cervix and uterus; Z90.49 Acquired absence of other specified parts of digestive tract; I83.90 Asymptomatic varicose veins of unspecified lower extremity; Z80.1 Family history of malignant neoplasm of trachea, bronchus and lung; Z98.49 Cataract extraction status, unspecified eye; Z90.722 Acquired absence of ovaries, bilateral
CPT/HCPCS: 94640 ×4; 97110; 97161; 64448; 76942; 80048; 85025; 73560; 27447; C1713; C1776; J2250; J0171; J1100; J0690 ×3; J2405; J3010; J1885; J1650; J2795 ×2; J0735; 88300

== ENCOUNTER 2021-05-31 07:20 | Day surgery (SDC) | payer MEDICARE ==
[2021-05-26 13:56] VITALS: BMI 16.7
[~2021-05-31 07:20] MED LIST changes: -ACETAMINOPHEN TAB 500 MG TAB PO PRN; +LACTATED RINGERS 1,000 ML IV SCH; +LIDOCAINE 1% (10MG/ML) FOR IV START INTRADERMA PRN; -MELOXICAM 7.5 MG TAB PO PRN; -ROPIVACAINE 246.25 MG, EPINEPHrine 0.5 MG, KETOROLAC 30 MG, cloNIDine HCL/PF 80 MCG, WA... MISCELLANE PRN; -TRANEXAMIC ACID 1,000 MG in SODIUM CHLORIDE 0.9% 100 ML IVPB PRN
[2021-05-31 07:55] LABS: Glucose,Whole Blood 163 mg/dL (75-99)
[2021-05-31 07:59] VITALS: TEMP 97.8
[2021-05-31] MEDS ORDERED: LACTATED RINGERS 1,000 ML IV ONE (08:00)
[2021-05-31] MEDS ORDERED: PROPOFOL 10 MG/ML 20 ML VIAL IV ONE (08:16)
[2021-05-31] MEDS ORDERED: LIDOCAINE 1% INJ 10MG/ML (20 ML MDV) ONE (08:16)
[2021-05-31 08:42] LABS: ALT 13 U/L (4-34); AST 21 U/L (14-36); African American GFR (CKD) 74 (>60 ml/min/1.73 sqM); Alkaline Phosphatase 47 U/L (38-126); Anion Gap 15 mmol/L; Blood Urea Nitrogen 17 mg/dL (7-17); Calcium 9.7 mg/dL (8.4-10.2); Carbon Dioxide 28 mmol/L (22-30); Chloride 97 mmol/L (98-107); Glucose 178 mg/dL (74-99); Non-African American GFR(CKD) 64 (>60 ml/min/1.73 sqM); Potassium 3.6 mmol/L (3.5-5.1); Sodium 140 mmol/L (137-145); Total Bilirubin 0.6 mg/dL (0.2-1.3); Total Protein 7.8 g/dL (6.3-8.2)
--- NOTE | 2021-05-31 08:46 | P.PCN ---
Date of Procedure: 05/31/21 Procedure(s) Performed: Brief history: Patient is a pleasant 65-year-old white female scheduled for an elective upper endoscopy as well as colonoscopy as a part of evaluation of early satiety, abdominal bloating, nausea and screening for colorectal neoplasia. Procedure performed: Esophagogastroduodenoscopy biopsy Colonoscopy with snare polypectomy Preoperative diagnosis: Abdominal pain/abdominal bloating and early satiety and progressive weight loss of 20 pounds Screening for colon cancer Anesthesia: MAC Procedure: After informed consent was obtained from the patient was brought into the endoscopy unit and IV sedation was administered by anesthesia under continuous monitoring. Initially upper endoscopy was done. The Olympus GF 160 video endoscope was inserted inserted into the mouth and esophagus intubated without any difficulty and was gradually advanced into the stomach and duodenum and carefully examined. The bulb and second part of the duodenum appeared normal. Biopsies were done from the duodenum to rule out celiac disease The scope was then withdrawn into the stomach adequately insufflated with air and upon careful examination the antrum diffuse gastritis and biopsies were done from this area. The body, cardia and fundus appeared normal. The scope was then withdrawn into the esophagus. The GE junction was located at 40 cm to the incisors. It appeared regular with no erythema erosions or ulcerations. Rest of the esophagus appeared normal. Patient tolerated the procedure well. At this time the patient continued to remain sedation. Initial digital rectal examination was normal. Olympus CF 160 video colonoscope was then inserted into the rectum and gradually advanced to the cecum without any difficulty. Careful examination was performed as the scope was gradually being withdrawn. The prep was excellent. The cecum, ascending colon, appeared normal. In the transverse colon there was a 5 mm polyp removed by snare polypectomy. In the descending colon there was a 5 mm polyp removed by snare polypectomy. In the sigmoid colon there was a 3 mm polyp removed by snare polypectomy. Rest of the transverse colon, descending colon, sigmoid colon and rectum appeared normal. Retroflexion was performed in the rectum ansmall internal hemorrhoidsere noted. Patient tolerated the procedure well. Impression: 1.Upper endoscopy revealed mild antral gastritis 2.Colonoscopy revealed 5 mm transverse colon polyp status post polypectomy 5 mm descending colon polyp status post polypectomy 3 mm sigmoid colon polyp status post polypectomy Small internal hemorrhoids Recommendations: Findings of this examination were discussed with the patient as well Mandy family. She was advised to follow with the biopsy results. if the biopsy reveals adenoma she can have a repeat colonoscopy in 3-5 years
[2021-05-31 08:52] VITALS: RESP 16
[2021-05-31 08:56] LABS: Basophils % (A) 0 %; Eosinophils # (A) 0.1 k/uL (0-0.7); Eosinophils % (A) 2 %; HCT 45.6 % (34.0-46.0); HGB 15.5 gm/dL (11.4-16.0); Lymphocytes # (A) 1.3 k/uL (1.0-4.8); Lymphocytes % (A) 25 %; MCH 32.8 pg (25.0-35.0); MCV 96.5 fL (80.0-100.0); Monocytes # (A) 0.4 k/uL (0-1.0); Monocytes % (A) 8 %; Neutrophils # (A) 3.3 k/uL (1.3-7.7); Neutrophils % (A) 62 %; Platelet Count 361 k/uL (150-450); RBC 4.73 m/uL (3.80-5.40); RDW 12.8 % (11.5-15.5); WBC 5.3 k/uL (3.8-10.6)
[2021-05-31 09:00] LABS: T4, Free (Free Thyroxine) 1.51 ng/dL (0.78-2.19)
[2021-05-31 09:05] VITALS: BP 102/75; PULSE 64
[2021-05-31 11:43] LABS: C Reactive Protein <0.5 mg/dL (<1.0)
[2021-05-31 12:06] LABS: Erythrocyte Sedimentation Rate 2 mm/hr (0-20)
== END 2021-05-31 09:30 | disposition home or self-care (01) ==
LOC: ORWHC2ENDO 07:20
PROVIDERS: ATTEND Internal Medicine Gastroenterology
DX: Z12.11 Encounter for screening for malignant neoplasm of colon (principal); D12.3 Benign neoplasm of transverse colon; D12.4 Benign neoplasm of descending colon; K29.50 Unspecified chronic gastritis without bleeding; K64.8 Other hemorrhoids; I10 Essential (primary) hypertension; E78.5 Hyperlipidemia, unspecified; J45.909 Unspecified asthma, uncomplicated; E11.9 Type 2 diabetes mellitus without complications; K21.9 Gastro-esophageal reflux disease without esophagitis; Z79.84 Long term (current) use of oral hypoglycemic drugs
CPT/HCPCS: 45385; 43239; 84439; 88305; 80053; 85652; 84443; 85025; 86140; J2001; J2704

== ENCOUNTER → 2021-06-06 | Outpatient (CLI) | payer MEDICARE ==
--- NOTE | 2021-06-06 15:44 | CT ---
EXAMINATION TYPE: CT ChestAbdPelvis w con DATE OF EXAM: 06/06/2021 COMPARISON: None. HISTORY: Approximately 30lb weight loss over past [address] DLP: 497.9 mGycm. Automated Exposure Control for Dose Reduction was Utilized. CONTRAST: CT scan of the thorax, abdomen and pelvis is performed with IV Contrast, patient injected with 100 mL of Isovue M300. FINDINGS: LUNGS: Moderate to advanced underlying emphysematous change greatest in the upper lungs and lung apic es. No pleural effusion or pneumothorax. Focal anteromedial left upper lung linear scarring with slig ht nodularity. No suspicious masses. MEDIASTINUM: There are no greater than 1 cm hilar or mediastinal lymph nodes. No cardiomegaly or pe ricardial effusion is seen. Coronary artery calcification is present. OTHER: Bilateral rim calcified subglandular breast implants with lobulated contour and internal infol ding or suspected intracapsular rupture. LIVER/GB: No significant abnormality is appreciated. PANCREAS: No significant abnormality is seen. SPLEEN: No significant abnormality is seen. ADRENALS: No significant abnormality is seen. KIDNEYS: No significant abnormality is seen. BOWEL: Oral contrast has not reached level of terminal ileum making evaluation of the wall suboptimal . Fecal prominent low-lying cecum into the right pelvis. No suspicious small or large bowel dilatatio n. There is [id number] concentric wall thickening in the mid to distal transverse colon to leve l of splenic flexure. Some diverticula in the left and sigmoid colon are present. No convincing CT ev idence for acute diverticulitis. GENITAL ORGANS: Uterus surgically absent. Scattered small bilateral pelvic phleboliths. LYMPH NODES: No greater than 1cm abdominal or pelvic lymph nodes are appreciated. OSSEOUS STRUCTURES: Diffuse demineralization. No suspicious focal lytic or sclerotic lesion. Multilev el facet arthropathy in the mid to lower lumbar spine. OTHER: Mild to moderate calcified plaque of the aorta extends into branch vessels. IMPRESSION: Upkx-[id number] wall thickening mid to distal transverse colon could reflect an uncompli cated colitis. Underlying neoplasm not entirely excluded. Colonoscopy follow-up advised if it has no t been performed in the last 3 years. Moderate to advanced underlying emphysematous change without ac morongo pulmonary process. No suspicious mass or adenopathy otherwise seen.
== END | disposition home or self-care (01) ==
LOC: RADCTMAIN 13:35
PROVIDERS: ATTEND Internal Medicine Gastroenterology
DX: K63.89 Other specified diseases of intestine (principal); J43.9 Emphysema, unspecified
CPT/HCPCS: 71260; 74177; Q9967 ×2

== ENCOUNTER 2022-06-13 10:52 | Day surgery (SDC) | payer MEDICARE ==
[~2022-06-13 10:52] MED LIST changes: +MOXIFLOXACIN HCL 0.5% DROPS 3 ML BTL OP PRN; +TETRACAINE 0.5% OPHTH (PF) DROPS 4 ML BTL OP PRN; +TIMOLOL 0.5% OPHTH DROPS 5 ML BTL OP PRN
[2022-06-13] MEDS: CYCLOPENTOLATE 1% OPHTH SOLN 2 ML BTL OP PRN ×3 (11:39→11:53)
[2022-06-13] MEDS: PHENYLEPHRINE 2.5% OPHTH DRP 2ML OP PRN ×3 (11:43→11:57)
[2022-06-13 11:47] VITALS: TEMP 97.3
[2022-06-13 12:04] LABS: Glucose,Whole Blood 133 mg/dL (70-110)
[2022-06-13 12:38] LABS: Basophils % (A) 1 %; Eosinophils # (A) 0.1 k/uL (0-0.7); Eosinophils % (A) 3 %; HCT 43.6 % (34.0-46.0); HGB 13.9 gm/dL (11.4-16.0); Lymphocytes # (A) 1.1 k/uL (1.0-4.8); Lymphocytes % (A) 20 %; MCH 32.3 pg (25.0-35.0); MCHC 31.9 g/dL (31.0-37.0); MCV 101.2 fL (80.0-100.0); Macrocytosis Slight; Mean Platelet Volume 7.3; Monocytes # (A) 0.5 k/uL (0-1.0); Monocytes % (A) 9 %; Neutrophils # (A) 3.5 k/uL (1.3-7.7); Neutrophils % (A) 65 %; Platelet Count 241 k/uL (150-450); RBC 4.31 m/uL (3.80-5.40); RDW 13.5 % (11.5-15.5); WBC 5.5 k/uL (3.8-10.6)
[2022-06-13 12:59] LABS: ALT 13 U/L (4-34); AST 21 U/L (14-36); African American GFR (CKD) 68 (>60 ml/min/1.73 sqM); Albumin 4.7 g/dL (3.5-5.0); Alkaline Phosphatase 46 U/L (38-126); Anion Gap 13 mmol/L; Blood Urea Nitrogen 25 mg/dL (7-17); Calcium 9.9 mg/dL (8.4-10.2); Carbon Dioxide 30 mmol/L (22-30); Chloride 94 mmol/L (98-107); Glucose 125 mg/dL (74-99); Non-African American GFR(CKD) 59 (>60 ml/min/1.73 sqM); Potassium 4.6 mmol/L (3.5-5.1); Sodium 137 mmol/L (137-145); Total Bilirubin 0.7 mg/dL (0.2-1.3); Total Protein 7.2 g/dL (6.3-8.2)
[2022-06-13] MEDS ORDERED: fentaNYL (PF) 50 MCG/ML 2 ML AMP ONE (13:09)
[2022-06-13] MEDS ORDERED: MIDAZOLAM 2 MG/2 ML VIAL ONE (13:09)
[2022-06-13 13:15] LABS: T4, Free (Free Thyroxine) 1.56 ng/dL (0.78-2.19)
[2022-06-13] MEDS ORDERED: EPINEPHrine (PF) 0.3 ML in BALANCED SALT IRRIG SOLN COMB2 500 ML IRRIGATION ONE (13:20)
[2022-06-13] MEDS ORDERED: BALANCED SALT IRRIG SOLN COMB2 15 ML IRRIG.SOLN INTRAOCULA ONE (13:20)
[2022-06-13] MEDS ORDERED: LIDOCAINE 1% (PF) 10MG/ML VIAL MISCELLANE ONE (13:21)
[2022-06-13] MEDS ORDERED: DUOVISC KIT (GREEN BOX) INTRAOCULA ONE (13:21)
--- NOTE | 2022-06-13 13:41 | P.OP ---
Date of Procedure: 06/13/22 Preoperative Diagnosis: NS & CS & PSC Postoperative Diagnosis: same Procedure(s) Performed: PIOL, OS Implants: TFAT00 17.00 Anesthesia: MAC Surgeon: Navi Underwood Pathology: none sent Condition: stable Disposition: same day Indications for Procedure: blurry vision Operative Findings: no complications
[2022-06-13 13:45] VITALS: RESP 15
[2022-06-13 14:05] VITALS: BP 170/96; PULSE 68
[2022-06-13 20:13] LABS: Chol/HDL Ratio 3.33 Ratio; LDL Cholesterol,Calculated 128.2 mg/dL (0.0-131.0); VLDL Calculation 14.58 mg/dL (5.00-40.00)
--- NOTE | 2022-06-14 02:46 | OP ---
OPERATIVE REPORT PROCEDURE: Phacoemulsification of cataract and intraocular lens implant of the left eye. PREOPERATIVE DIAGNOSES: Nuclear sclerosis, cortical sclerosis, posterior subcapsular cataract. POSTOPERATIVE DIAGNOSES: Nuclear sclerosis, cortical sclerosis, posterior subcapsular cataract. NARRATIVE: After obtaining the appropriate consent, the patient was brought to the operating room. There the patient was placed under cardiac monitoring, prepped and draped in the usual sterile manner. The patient was approached from the left temporal side. The mm Timothy ring inked in gentian kati was placed centrally on the cornea. At the 11 o'clock position, a 1.1 mm keratome was used to create a paracentesis port. Through this opening, 1% Xylocaine MPF 50/50 mix with balanced salt solution was injected into the anterior chamber. This was followed by stabilization of the anterior chamber with DuoVisc viscoelastic. At the 9 o'clock position, a 2.75 mm aj keratome was used to create a self-scaling corneal flap incision in a Langerman fashion. Through this opening, a cystotome was introduced to begin a continuous tear capsulorrhexis which was completed using the Utrata forceps. Care was taken to ensure that the capsulorrhexis was at least the size of the hanna on the anterior cornea. Hydrodissection and hydrodelineation of the lens were accomplished with balanced salt solution. Phacoemulsification of the lens utilizing phaco chop was accomplished in 10.15 seconds at 8% power. Addition Xylocaine MPF was instilled into the anterior chamber. This was followed by removal of the remaining cortex under irrigation and aspiration along with careful polishing of the posterior capsule in a capsule vacuum mode. Additional Amvisc viscoelastic was then used to stabilize the capsular bag, and the implant is an Julio TFAT00, 17.0 Diopter posterior chamber intraocular lens was injected into the capsular bag without difficulty. The lens was rotated 270 degrees so that the haptics resided at the 6 and 12 o'clock positions, and all remaining viscoelastic was then removed from within the capsular bag and around the anterior chamber. The eye was brought to normal intraocular pressure through the paracentesis port along with slight hydration of the incision sites. Watertight integrity was confirmed using a fluorescein strip. The patient then received 2 drops of 0.5% timolol followed by 2 drops of Vigamox and 2 drops of 1% atropine. The patient was then lightly patched and shielded in the usual manner. There was no complications from the procedure. The patient tolerated the procedure well and was returned to outpatient recovery in good condition. TRINO / ANUSHKA: [id number] /
== END 2022-06-13 14:34 | disposition home or self-care (01) ==
LOC: OR 10:52
PROVIDERS: ATTEND Ophthalmology
DX: E11.36 Type 2 diabetes mellitus with diabetic cataract (principal); H25.012 Cortical age-related cataract, left eye; H25.042 Posterior subcapsular polar age-related cataract, left eye; H53.022 Refractive amblyopia, left eye; H35.051 Retinal neovascularization, unspecified, right eye; H52.211 Irregular astigmatism, right eye; H04.123 Dry eye syndrome of bilateral lacrimal glands; H52.13 Myopia, bilateral; H52.4 Presbyopia; Z94.7 Corneal transplant status; Z96.1 Presence of intraocular lens; J45.909 Unspecified asthma, uncomplicated; M19.90 Unspecified osteoarthritis, unspecified site; I10 Essential (primary) hypertension; Z87.891 Personal history of nicotine dependence; Z98.890 Other specified postprocedural states; Z90.710 Acquired absence of both cervix and uterus; Z96.659 Presence of unspecified artificial knee joint; Z90.49 Acquired absence of other specified parts of digestive tract; Z83.518 Family history of other specified eye disorder; Z82.61 Family history of arthritis; Z83.3 Family history of diabetes mellitus; Z82.49 Family history of ischemic heart disease and other diseases of the circulatory system; Z82.3 Family history of stroke; Z80.1 Family history of malignant neoplasm of trachea, bronchus and lung; Z79.84 Long term (current) use of oral hypoglycemic drugs; Z79.51 Long term (current) use of inhaled steroids; Z79.899 Other long term (current) drug therapy
CPT/HCPCS: 84439; 80061; 80053; 84443; 85025; 82306; 83036; 66984; V2632; J2250; J0171; J3010; J2001

== ENCOUNTER 2023-03-10 13:41 | Inpatient (IN) | payer MEDICARE ==
[2023-03-10] MEDS ORDERED: IPRATROPIUM 0.5 MG/2.5 ML NEBU INHALATION STA (14:49)
[2023-03-10] MEDS ORDERED: ALBUTEROL NEBULIZED 2.5 MG/3 ML INHALATION STA (14:49)
[2023-03-10] MEDS ORDERED: methylPREDNISolone SOD SUCCI 125 MG/2 ML VIAL IV STA (14:49)
--- NOTE | 2023-03-10 15:02 | ED ---
General Adult HPI - General Chief complaint: Shortness of Breath Stated complaint: SOB Time Seen by Provider: 03/10/23 14:00 Source: patient, RN notes reviewed, old records reviewed Mode of arrival: ambulatory Limitations: no limitations - History of Present Illness Initial comments: This is a 67-year-old female with past medical history significant for COPD. Patient has quit smoking 20 years ago. Patient comes in today because she's having difficulty breathing is getting progressively worse and today she was oxygenating between 80-89% home she does not have any home oxygen. Patient states she has been recently given steroids when she's had these episodes in the past and is much improved. Patient denies fever chills patient states she's had a cough is no worse than normal. Patient denies chest pain or palpitations. - Related Data Home Medications Medication Instructions Recorded Confirmed Budesonide-Formot 160-4.5 Mcg 2 puff INHALATION RT-BID 09/20/20 03/10/23 [Symbicort 160-4.5 Mcg Inhaler] Ipratropium/Albuterol Sulfate 1 puff INHALATION RT-QID 09/20/20 03/10/23 [Combivent Respimat Inhaler] Metoprolol Tartrate [Lopressor] 150 mg PO BID 09/20/20 03/10/23 hydroCHLOROthiazide 50 mg PO DAILY 09/20/20 03/10/23 metFORMIN HCL [Glucophage] 1,000 mg PO BID 09/20/20 03/10/23 Cholecalciferol [Vitamin D3 (25 25 mcg PO DAILY 03/10/23 03/10/23 Mcg = 1000 Iu)] Fluvastatin Sodium [Fluvastatin ER] 80 mg PO HS 03/10/23 03/10/23 HYDROcodone/APAP 10-325MG [[place] 0.5 tab PO Q4HR PRN 03/10/23 03/10/23 10-325] Loratadine [Claritin] 10 mg PO DAILY PRN 03/10/23 03/10/23 Allergies Allergy/AdvReac Type Severity Reaction Status Date / Time No Known Allergies Allergy Verified 03/10/23 15:33 Review of Systems ROS Statement: Those systems with pertinent positive or pertinent negative responses have been documented in the HPI. ROS Other: All systems not noted in ROS Statement are negative. Past Medical History Past Medical History: Asthma, COPD, Diabetes Mellitus, Eye Disorder, GERD/Reflux, Hypertension, Osteoarthritis (OA) Additional Past Medical History / Comment(s): Seasonal allergies, has lost weight in last 3 months. psoriasis, varicose viens History of Any Multi-Drug Resistant Organisms: None Reported Past Surgical History: Appendectomy, Hysterectomy, Joint Replacement Additional Past Surgical History / Comment(s): L total knee in 2019 rt corneal transplant, 8 other surgeries on rt eye Past Anesthesia/Blood Transfusion Reactions: No Reported Reaction Past Psychological History: No Psychological Hx Reported Smoking Status: Never smoker Past Alcohol Use History: None Reported Past Drug Use History: None Reported - Past Family History Brother(s) Family Medical History: Cancer General Exam - General Exam Comments Initial Comments: GENERAL: Patient is well-developed and well-nourished. Patient is nontoxic and well- hydrated and is in mild distress. ENT: Neck is soft and supple. No significant lymphadenopathy is noted. Oropharynx is clear. Moist mucous membranes. Neck has full range of motion without eliciting any pain. EYES: The sclera were anicteric and conjunctiva were pink and moist. Extraocular movements were intact and pupils were equal round and reactive to light. Eyelids were unremarkable. PULMONARY: Diffusely diminished breath sounds CARDIOVASCULAR: There is a regular rate and rhythm without any murmurs gallops or rubs. ABDOMEN: Soft and nontender with normal bowel sounds. SKIN: Skin is clear with no lesions or rashes and otherwise unremarkable. NEUROLOGIC: Patient is alert and oriented x3. Cranial nerves II through XII are grossly intact. Motor and sensory are also intact. Normal speech, volume and content. Symmetrical smile. MUSCULOSKELETAL: Normal extremities with adequate strength and full range of motion. LYMPHATICS: No significant lymphadenopathy is noted PSYCHIATRIC: Normal psychiatric evaluation. Limitations: no limitations Course Vital Signs 03/10/23 03/10/23 03/10/23 13:55 14:51 15:39 Temperature 98.6 F Pulse Rate 75 79 70 Respiratory 24 24 Rate Blood Pressure 177/110 175/99 O2 Sat by Pulse 92 L 95 Oximetry Medical Decision Making - Medical Decision Making EKG was interpreted by myself shows a sinus rhythm at 75 bpm MT interval 111 QRSs 89 QT interval 373 QTC is 42. Patient's EKG shows some T-wave inversions in precordial leads V4 V5 and V6. Was pt. sent in by a medical professional or institution (Dr., PA, PROGRAM CONTROL ANALYST, urgent care, hospital, or halfway...) When possible be specific @ -[No] Did you speak to anyone other than the patient for history (EMS, parent, family, police, friend...)? What history was obtained from this source @ -[No] Did you review nursing and triage notes (agree or disagree)? Why? @ -[I reviewed and agree with nursing and triage notes] Were old charts reviewed (outside hosp., previous admission, EMS record, old EKG, old radiological studies, urgent care reports/EKG's, halfway records)? Report findings @ -I reviewed prior lab work prior radiological studies in this patient Differential Diagnosis (chest pain, altered mental status, abdominal pain women, abdominal pain men, vaginal bleeding, weakness, fever, dyspnea, syncope, headache, dizziness, GI bleed, back pain, seizure, CVA, palpatations, mental health, musculoskeletal)? @ -Differential Dyspnea: Coronary syndrome, arrhythmia, tamponade, asthma, COPD, pulmonary embolism, pneumonia, pneumothorax, pulmonary effusion, anaphylaxis, diabetic ketoacidosis, flailed chest, pulmonary contusion, diaphragmatic rupture, anemia, neuromuscular, this is not meant to be an all-inclusive list. EKG interpreted by me (3pts min.). @ -[As above] X-rays interpreted by me (1pt min.). @ -X-ray shows advanced COPD no infiltrate is noted CT interpreted by me (1pt min.). @ -[None done] U/S interpreted by me (1pt. min.). @ -[None done] What testing was considered but not performed or refused? (CT, X-rays, U/S, labs)? Why? @ -[None] What meds were considered but not given or refused? Why? @ -[None] Did you discuss the management of the patient with other professionals (professionals i.e. DOLLY Marshall, PROGRAM CONTROL ANALYST, lab, RT, psych nurse, psych social worker, esol teacher, teacher, tactical deception plans officer, pillowcase turner)? Give summary @ -Poke with Dr. Garzon about admitting this patient and he was in agreement Was smoking cessation discussed for >3mins.? @ -[No] Was critical care preformed (if so, how long)? @ -[No] Were there social determinants of health that impacted care today? How? (Homelessness, low income, unemployed, alcoholism, drug addiction, transportation, low edu. Level, literacy, decrease access to med. care, mcc, rehab)? @ -[No] Was there de-escalation of care discussed even if they declined (Discuss DNR or withdrawal of care, Hospice)? DNR status @ -[No] What co-morbidities impacted this encounter? (DM, HTN, Smoking, COPD, CAD, Cancer, CVA, ARF, Chemo, Hep., AIDS, mental health diagnosis, sleep apnea, morbid obesity)? @ -[None] Was patient admitted / discharged? Hospital course, mention meds given and route, prescriptions, significant lab abnormalities, going to OR and other pertinent info. @ -Patient was given 2 breathing treatments steroids and antibiotics. I spoke with Dr. Garzon agreed to admit the patient admitted the patient I consulted pulmonary Undiagnosed new problem with uncertain prognosis? @ -[No] Drug Therapy requiring intensive monitoring for toxicity (Heparin, Nitro, Insulin, Cardizem)? @ -[No] Were any procedures done? @ -[No] Diagnosis/symptom? @ -Exacerbation of COPD Acute, or Chronic, or Acute on Chronic? @ -Acute Uncomplicated (without systemic symptoms) or Complicated (systemic symptoms)? @ -Complicated Side effects of treatment? @ -[No] Exacerbation, Progression, or Severe Exacerbation? @ -[No] Poses a threat to life or bodily function? How? (Chest pain, USA, OR, pneumonia, PE, COPD, DKA, ARF, appy, cholecystitis, CVA, Diverticulitis, Homicidal, Suicidal, threat to staff... and all critical care pts) @ -Yes patient could be, hypoxic and this could lead to end organ dysfunction - Lab Data Result diagrams: 03/10/23 14:56 Lab Results 03/10/23 Range/Units 14:56 WBC 10.7 H (3.8-10.6) k/uL RBC 4.59 (3.80-5.40) m/uL Hgb 14.7 (11.4-16.0) gm/dL Hct 45.7 (34.0-46.0) % MCV 99.6 (80.0-100.0) fL MCH 32.0 (25.0-35.0) pg MCHC 32.1 (31.0-37.0) g/dL RDW 13.3 (11.5-15.5) % Plt Count 371 (150-450) k/uL MPV 7.6 Neutrophils % 82 % Lymphocytes % 9 % Monocytes % 4 % Eosinophils % 2 % Basophils % 0 % Neutrophils # 8.8 H (1.3-7.7) k/uL Lymphocytes # 1.0 (1.0-4.8) k/uL Monocytes # 0.4 (0-1.0) k/uL Eosinophils # 0.2 (0-0.7) k/uL Basophils # 0.0 (0-0.2) k/uL Disposition Clinical Impression: Acute exacerbation of chronic obstructive pulmonary disease Disposition: ADMITTED IP TO THIS HOSP Referrals: Aurelia Clement MD [Primary Care Provider] - 1-2 days Time of Disposition: 15:49
[2023-03-10 15:27] LABS: Basophils % (A) 0 %; Eosinophils # (A) 0.2 k/uL (0-0.7); Eosinophils % (A) 2 %; HCT 45.7 % (34.0-46.0); HGB 14.7 gm/dL (11.4-16.0); Lymphocytes % (A) 9 %; MCHC 32.1 g/dL (31.0-37.0); MCV 99.6 fL (80.0-100.0); Mean Platelet Volume 7.6; Monocytes # (A) 0.4 k/uL (0-1.0); Monocytes % (A) 4 %; Neutrophils # (A) 8.8 k/uL (1.3-7.7); Neutrophils % (A) 82 %; Platelet Count 371 k/uL (150-450); RBC 4.59 m/uL (3.80-5.40); RDW 13.3 % (11.5-15.5); WBC 10.7 k/uL (3.8-10.6)
[2023-03-10] MEDS ORDERED: cefTRIAXone IN SWFI 1,000 MG/10 ML SYRINGE IVP STA (15:31)
[2023-03-10] MEDS ORDERED: NALOXONE 0.4 MG/ML 1 ML VIAL IVP PRN (15:49)
[2023-03-10] MEDS ORDERED: IPRATROPIUM-ALBUTEROL 3 ML NEB INHALATION PRN (15:49)
[2023-03-10] MEDS ORDERED: IPRATROPIUM-ALBUTEROL 3 ML NEB INHALATION SCH (16:00)
--- NOTE | 2023-03-10 16:09 | XR ---
EXAMINATION TYPE: XR chest 2V DATE OF EXAM: 03/10/2023 COMPARISON: 04/25/2017 HISTORY: 67 year-old female shortness of breath, difficulty breathing TECHNIQUE: PA and lateral views FINDINGS: Heart normal size. Atherosclerotic arch calcifications. Bilateral calcified breast implants are redem onstrated. Hyperinflation with a right apical parenchymal scarring. No consolidation or pleural effus ion seen. IMPRESSION: COPD with marked emphysema. Calcified bilateral breast implants. No acute process seen.
[2023-03-10] MEDS ORDERED: LORazepam 0.5 MG TAB PO PRN (16:19)
[2023-03-10] MEDS ORDERED: ACETAMINOPHEN TAB 325 MG TAB PO PRN (16:19)
[2023-03-10] MEDS ORDERED: ONDANSETRON 4 MG/2 ML VIAL IVP PRN (16:19)
[2023-03-10] MEDS ORDERED: TEMAZEPAM 15 MG CAP PO PRN (16:19)
[2023-03-10] MEDS ORDERED: LACTULOSE 20 GM/30 ML CUP PO PRN (16:19)
[2023-03-10] MEDS ORDERED: CALCIUM CARBONATE 500 MG CHEWABLE PO PRN (16:19)
--- NOTE | 2023-03-10 16:21 | P.HPIM ---
History of Present Illness H&P Date: 03/10/23 Chief Complaint: Short of breath This is a pleasant 67-year-old patient who follows with Dr. Aurelia Clement. [employer] Dr. Barrientos. Chronic stable medical conditions include diabetes, GERD, hypertension, osteoporosis, seasonal ALLERGIES, psoriasis. Patient saw Dr. Barrientos a month ago. Has been progressively getting more and more short of breath. Can barely walk. Son decided to bring her to his place. Patient will get short of breath with eating. Patient as an state COPD. Also wheezing. Currently no fever no chills. Has been losing weight. No cough no sputum Review of systems: GEN.: Decreased appetite tired EYES: None HEENT: None NECK: None RESPIRATORY: [As above CARDIOVASCULAR: None GASTROINTESTINAL: None GENITOURINARY: None MUSCULOSKELETAL: Some joint pains LYMPHATICS: None HEMATOLOGICAL: None PSYCHIATRY: Anxious NEUROLOGICAL: None Past medical history to include: COPD, diabetes, GERD, hypertension, osteoarthritis, seasonal ALLERGIES, psoriasis, arthritis Social history: Normally lives alone. Currently living with her son. Start smoking 16 years ago. No alcohol. Physical examination: VITAL SIGNS: 98.6, 82, 22, 151/96, 100% on 2 L GENERAL: BMI 40.5, sitting up in a tripod position, unable to speak in sentences. Dusky hands and feet EYES: Pupils equal. Conjunctiva normal. HEENT: External appearance of nose and ears normal, oral cavity grossly normal. NECK: JVD not raised; masses not palpable. HEART: First and second heart sounds are normal; no edema. LUNGS:[ Respiratory rate increased,; poor air entry, not able to speak in s entences, accessory muscles of working. ABDOMEN: Soft, nontender, liver spleen not palpable, no masses palpable. PSYCH: [Alert and oriented x3; mood and affect anxious l. MUSCULOSKELETAL:No Clubbing/cyanosis;muscles-grossly intact. Loss of muscle mass. Bony prominence NEUROLOGICAL: Cranial nerves grossly intact; no facial asymmetry, power and sensation grossly intact. LYMPHATICS: No lymph nodes palpable in the axilla and neck INVESTIGATIONS, reviewed in the clinical context: White count 10.7 hemoglobin 14.7 platelets 371 EKG tracing personally reviewed by me-normal sinus rhythm. LVH with strain pattern. Peaked P waves in lead 2 Chest x-ray film personally reviewed by me-hyperinflation. Tubular heart. Flattened diaphragm. No infiltrates Assessment and plan: -Acute end-stage severe COPD exacerbation in a ex-smoker DuoNeb every 4, nebulized Pulmicort Perforomist. IV Solu-Medrol -Acute on chronic hypoxic respiratory failure from advanced COPD Patient may need a Airvo/BiPAP. Pulmonary consulted -Essential hypertension Lopressor 150 mg twice a day -Diabetes mellitus type 2 on oral hypoglycemic Follow Accu-Cheks -Hyperlipidemia Fluvastatin -Primary osteoarthritis his multiple joints Pain medications as needed -Severe protein calorie malnutrition from decreased oral intake Ensure one can 3 times a day -Full code Care was discussed length with patient's son at the bedside. Questions answered. Consult pulmonary. Past Medical History Past Medical History: Asthma, COPD, Diabetes Mellitus, Eye Disorder, GERD/Refl ux, Hypertension, Osteoarthritis (OA) Additional Past Medical History / Comment(s): Seasonal allergies, has lost weight in last 3 months. psoriasis, varicose viens History of Any Multi-Drug Resistant Organisms: None Reported Past Surgical History: Appendectomy, Hysterectomy, Joint Replacement Additional Past Surgical History / Comment(s): L total knee in 2019 rt corneal transplant, 8 other surgeries on rt eye Past Anesthesia/Blood Transfusion Reactions: No Reported Reaction Past Psychological History: No Psychological Hx Reported Smoking Status: Never smoker Past Alcohol Use History: None Reported Past Drug Use History: None Reported - Past Family History Brother(s) Family Medical History: Cancer Medications and Allergies Home Medications Medication Instructions Recorded Confirmed Type Budesonide-Formot 160-4.5 Mcg 2 puff INHALATION RT-BID 09/20/20 03/10/23 History [Symbicort 160-4.5 Mcg Inhaler] Ipratropium/Albuterol Sulfate 1 puff INHALATION RT-QID 09/20/20 03/10/23 History [Combivent Respimat Inhaler] Metoprolol Tartrate [Lopressor] 150 mg PO BID 09/20/20 03/10/23 History hydroCHLOROthiazide 50 mg PO DAILY 09/20/20 03/10/23 History metFORMIN HCL [Glucophage] 1,000 mg PO BID 09/20/20 03/10/23 History Cholecalciferol [Vitamin D3 (25 25 mcg PO DAILY 03/10/23 03/10/23 History Mcg = 1000 Iu)] Fluvastatin Sodium [Fluvastatin ER] 80 mg PO HS 03/10/23 03/10/23 History HYDROcodone/APAP 10-325MG [[place] 0.5 tab PO Q4HR PRN 03/10/23 03/10/23 History 10-325] Loratadine [Claritin] 10 mg PO DAILY PRN 03/10/23 03/10/23 History Allergies Allergy/AdvReac Type Severity Reaction Status Date / Time No Known Allergies Allergy Verified 03/10/23 15:33 Physical Exam Vitals: Vital Signs Temp Pulse Resp BP Pulse Ox 03/10/23 16:08 97 03/10/23 15:49 82 22 151/96 100 03/10/23 15:39 70 03/10/23 14:51 79 24 175/99 95 03/10/23 13:55 98.6 F 75 24 177/110 92 L Intake and Output 03/10/23 03/10/23 03/10/23 06:59 14:59 22:59 Other: Weight 47.174 kg Results CBC & Chem 7: 03/10/23 14:56 Labs: Abnormal Lab Results - Last 24 Hours (Table) 03/10/23 Range/Units 14:56 WBC 10.7 H (3.8-10.6) k/uL Neutrophils # 8.8 H (1.3-7.7) k/uL
[2023-03-10 16:30] LABS: ALT 19 U/L (4-34); AST 22 U/L (14-36); African American GFR (CKD) 79 (>60 ml/min/1.73 sqM); Albumin 3.8 g/dL (3.5-5.0); Alkaline Phosphatase 78 U/L (38-126); Anion Gap 7 mmol/L; Blood Urea Nitrogen 26 mg/dL (7-17); Calcium 9.6 mg/dL (8.4-10.2); Carbon Dioxide 36 mmol/L (22-30); Chloride 92 mmol/L (98-107); Glucose 163 mg/dL (74-99); Magnesium 1.1 mg/dL (1.6-2.3); Non-African American GFR(CKD) 69 (>60 ml/min/1.73 sqM); Potassium 4.3 mmol/L (3.5-5.1); Sodium 135 mmol/L (137-145); Total Bilirubin 0.5 mg/dL (0.2-1.3); Total Protein 6.8 g/dL (6.3-8.2)
[2023-03-10] MEDS: IPRATROPIUM-ALBUTEROL 3 ML NEB INHALATION SCH ×3 (17:07→23:47)
[2023-03-10] MEDS: methylPREDNISolone SOD SUCCI 125 MG/2 ML VIAL IV SCH ×2 (17:51→23:37)
[2023-03-10] MEDS: ENOXAPARIN 40 MG/0.4 ML SYRINGE SQ SCH (17:52)
[2023-03-10] MEDS: FORMOTEROL FUMARATE 20 MCG/2 ML NEBU INHALATION SCH (20:00)
[2023-03-10] MEDS: BUDESONIDE 1 MG/2 ML NEBU INHALATION SCH (20:00)
[2023-03-10] MEDS: ATORVASTATIN 10 MG TAB PO SCH (21:01)
[2023-03-10] MEDS: AMOXIC-POT CLAV 875-125MG 1 EACH TAB PO SCH (21:01)
[2023-03-10] MEDS: METOPROLOL TARTRATE 50 MG TAB PO SCH (21:01)
--- NOTE | 2023-03-11 02:07 | P.CNPUL ---
History of Present Illness Consult date: 03/11/23 Requesting physician: Asim Keen Reason for consult: COPD Chief complaint: Shortness of breath for approximately 3 weeks History of present illness: I am seeing this patient in new consultation today 03/11/2023 for suspected COPD exacerbation. Patient is a 67-year-old white female with past medical history significant for very severe COPD with an FEV1 26% of predicted, hypertension, hyperlipidemia, diabetes mellitus. Patient does follow with Dr. Barrientos in the office, and was recently treated for a sinus infection approximately one month ago. She did initially improve, however, developed some significant shortness of breath over the past 3 weeks. She also had associated chest tightness and nonproductive cough. She denies any fever, chills, chest pain, hemoptysis. Denies sick contacts. She was given a prednisone taper on outpatient basis, her symptoms initially improved, but worsened once tapering off the steroids. She presented to the emergency room yesterday afternoon. She is currently sitting up in bed, on AIRVO 40 L and 30%, in no acute distress. Chest x-ray on arrival showed no acute cardiopulmonary process, focal consolidation or evidence of pneumonia. CBC on arrival showed a WBC count of 10.7, hemoglobin 14.7, hematocrit 45.7, platelets 371. BMP on arrival showed a sodium of 135, potassium 4.3, chloride 92, serum bicarb 36, BUN 26, creatinine 0.80, glucose 163. Troponin negative 1. Patient is currently being maintained on a combination of bronchodilators, budesonide, formoterol, and IV Solu-Medrol. She is also receiving empiric Augmentin. She is afebrile. Vital signs are stable. Review of Systems REVIEW OF SYSTEMS: CONSTITUTIONAL: Denies any recent significant weight loss or weight gain. EYES: Denies change in vision. EARS, NOSE, MOUTH, THROAT: Denies headaches, denies sore throat. CARDIOVASCULAR: Denies chest pain, palpitations or syncopal episodes. RESPIRATORY: See HPI GASTROINTESTINAL: Denies change in appetite, abdominal pain, nausea and vomiting, or diarrhea GENITOURINARY: Denies hematuria, denies infections. MUSKULOSKELETAL: Denies pain, denies swelling. INTEGUMENTARY: Denies rash, denies eczema. NEUROLOGICAL: Denies recent memory loss, no recent seizure activity. PSYCHIATRIC: Denies anxiety, denies depression. HEMATOLOGIC/LYMPHATIC: Denies anemia, denies enlarged lymph node Past Medical History Past Medical History: Asthma, COPD, Diabetes Mellitus, Eye Disorder, GERD/Reflux, Hypertension, Osteoarthritis (OA) Additional Past Medical History / Comment(s): Seasonal allergies, has lost weight in last 3 months. psoriasis, varicose viens History of Any Multi-Drug Resistant Organisms: None Reported Past Surgical History: Appendectomy, Hysterectomy, Joint Replacement Additional Past Surgical History / Comment(s): L total knee in 2019 rt corneal transplant, 8 other surgeries on rt eye Past Anesthesia/Blood Transfusion Reactions: No Reported Reaction Past Psychological History: No Psychological Hx Reported Smoking Status: Never smoker Past Alcohol Use History: None Reported Past Drug Use History: None Reported - Past Family History Brother(s) Family Medical History: Cancer Medications and Allergies Home Medications Medication Instructions Recorded Confirmed Type Budesonide-Formot 160-4.5 Mcg 2 puff INHALATION RT-BID 09/20/20 03/10/23 History [Symbicort 160-4.5 Mcg Inhaler] Ipratropium/Albuterol Sulfate 1 puff INHALATION RT-QID 09/20/20 03/10/23 History [Combivent Respimat Inhaler] Metoprolol Tartrate [Lopressor] 150 mg PO BID 09/20/20 03/10/23 History hydroCHLOROthiazide 50 mg PO DAILY 09/20/20 03/10/23 History metFORMIN HCL [Glucophage] 1,000 mg PO BID 09/20/20 03/10/23 History Cholecalciferol [Vitamin D3 (25 25 mcg PO DAILY 03/10/23 03/10/23 History Mcg = 1000 Iu)] Fluvastatin Sodium [Fluvastatin ER] 80 mg PO HS 03/10/23 03/10/23 History HYDROcodone/APAP 10-325MG [[place] 0.5 tab PO Q4HR PRN 03/10/23 03/10/23 History 10-325] Loratadine [Claritin] 10 mg PO DAILY PRN 03/10/23 03/10/23 History Allergies Allergy/AdvReac Type Severity Reaction Status Date / Time No Known Allergies Allergy Verified 03/10/23 15:33 Physical Exam Vitals: Vital Signs Temp Pulse Resp BP Pulse Ox FiO2 03/10/23 23:55 80 03/10/23 23:49 73 30 03/10/23 22:54 70 22 143/84 100 03/10/23 21:03 95 22 156/100 96 03/10/23 20:15 112 H 03/10/23 20:07 112 H 03/10/23 20:06 106 H 03/10/23 20:03 110 H 30 03/10/23 18:59 97 F L 96 22 168/91 95 03/10/23 17:22 92 03/10/23 17:10 92 03/10/23 16:20 30 03/10/23 16:08 97 03/10/23 15:56 70 03/10/23 15:49 82 22 151/96 100 03/10/23 15:39 70 03/10/23 14:51 79 24 175/99 95 03/10/23 13:55 98.6 F 75 24 177/110 92 L Intake and Output 03/10/23 03/10/23 03/11/23 14:59 22:59 06:59 Other: Weight 47.174 kg GENERAL EXAM: Alert, 77-year-old white female, comfortable in no apparent distress. HEAD: Normocephalic and atraumatic EYES: Normal reaction of pupils, equal size. NOSE: Clear with pink turbinates. THROAT: No erythema or exudates. NECK: No masses, no JVD. CHEST: No chest wall deformity. LUNGS: Equal air entry with diminished lung sounds throughout and minimal end expiratory wheeze. no crackles, rhonchi or dullness. On AIRVO 40 L and 30%. No conversational dyspnea or accessory muscle use.. CVS: S1 and S2 normal with no audible murmur, regular rhythm. No extra heart sounds ABDOMEN: No hepatosplenomegaly, active bowel sounds, no guarding or rigidity. SPINE: No scoliosis or deformity SKIN: No rashes CENTRAL NERVOUS SYSTEM: No focal deficits, tone is normal in all 4 extremities. EXTREMITIES: There is no peripheral edema, clubbing, or cyanosis. Peripheral pulses are intact. Results - Laboratory Findings CBC and BMP: 03/10/23 14:56 03/10/23 15:50 Abnormal lab findings: Abnormal Labs 03/10/23 03/10/23 14:56 15:50 WBC 10.7 H Neutrophils # 8.8 H Sodium 135 L Chloride 92 L Carbon Dioxide 36 H BUN 26 H Glucose 163 H Magnesium 1.1 L - Diagnostic Findings Chest x-ray: image reviewed Assessment and Plan Assessment: Acute exacerbation of the patient's very severe COPD with an FEV1 26% of pr edicted. Chest x-ray shows no focal consolidation or evidence of pneumonia. Acute hypoxemic respiratory failure, currently requiring AIRVO 30 L and 40% Essential hypertension Hyperlipidemia Type 2 diabetes mellitus, [id number] Remote ex-smoker Plan: Patient's medications, labs, chest x-ray reviewed Check procalcitonin level, and continue with empiric antibiotics for now Check for COVID-19 Optimize patient's COPD with a combination of bronchodilators, formoterol, budesonide, IV Solu-Medrol Continue AIRVO, titrate flow rate and FiO2 accordingly, as she is oxygenating near 100% Restart home antihypertensives Blood glucose control per admitting we will continue to follow I have personally seen and examined the patient, performed the documentation and the assessment and plan as written. Number of minutes spent on the visit:20 Time with Patient: Greater than 30
[2023-03-11] MEDS: IPRATROPIUM-ALBUTEROL 3 ML NEB INHALATION SCH ×5 (05:08→20:54)
[2023-03-11] MEDS: methylPREDNISolone SOD SUCCI 125 MG/2 ML VIAL IV SCH ×3 (06:03→17:32)
[2023-03-11] MEDS: FORMOTEROL FUMARATE 20 MCG/2 ML NEBU INHALATION SCH ×2 (07:51→20:54)
[2023-03-11] MEDS: BUDESONIDE 1 MG/2 ML NEBU INHALATION SCH ×2 (07:51→20:54)
[2023-03-11] MEDS: AMOXIC-POT CLAV 875-125MG 1 EACH TAB PO SCH (09:14)
[2023-03-11] MEDS: ENOXAPARIN 40 MG/0.4 ML SYRINGE SQ SCH (09:14)
[2023-03-11] MEDS: CHOLECALCIFEROL 25 MCG (1000 IU) TABLET PO SCH (09:14)
[2023-03-11] MEDS: METOPROLOL TARTRATE 50 MG TAB PO SCH ×2 (09:15→21:55)
[2023-03-11] MEDS: HYDROcodone/APAP 10-325MG 1 EACH TAB PO PRN (09:20)
[2023-03-11] MEDS ORDERED: DEXTROSE 50% SYRINGE 50 ML IVP PRN ×2 (12:35)
--- NOTE | 2023-03-11 12:37 | P.PN ---
Progress Note - Text Progress Note Date: 03/11/23 Chief Complaint: Short of breath This is a pleasant 67-year-old patient who follows with Dr. Aurelia Clement. Crop Pest Control Specialist Dr. Barrientos. Chronic stable medical conditions include diabetes, GERD, hypertension, osteoporosis, seasonal ALLERGIES, psoriasis. Patient saw Dr. Barrientos a month ago. Has been progressively getting more and more short of breath. Can barely walk. Son decided to bring her to his place. Patient will get short of breath with eating. Patient as an state COPD. Also wheezing. Currently no fever no chills. Has been losing weight. No cough no sputum Admitted with acute severe COPD exacerbation and acute respiratory failure. Started on DuoNeb, IV Solu-Medrol. March 11: Sitting up in bed. Breathing better. Did eat some breakfast. No cough. No sputum. stop antibiotics.. Continue with IV Solu-Medrol and DuoNeb. Active Medications Acetaminophen (Acetaminophen Tab 325 Mg Tab) 650 mg PO Q6HR PRN PRN Reason: Mild Pain or Fever > 100.5 Hydrocodone Bitart/Acetaminophen (Hydrocodone/Apap 10-325mg 1 Each Tab) 0.5 each PO Q4HR PRN PRN Reason: Pain Last Admin: 03/11/23 09:20 Dose: 0.5 each Albuterol/Ipratropium (Ipratropium-Albuterol 3 Ml Neb) 3 ml INHALATION RT-Q2H PRN PRN Reason: Shortness Of Breath Or Wheezing Albuterol/Ipratropium (Ipratropium-Albuterol 3 Ml Neb) 3 ml INHALATION Q4H [facility] Last Admin: 03/11/23 11:34 Dose: 3 ml Atorvastatin Calcium (Atorvastatin 10 Mg Tab) 10 mg PO HS [facility] Last Admin: 03/10/23 21:01 Dose: 10 mg Budesonide (Budesonide 1 Mg/2 Ml Nebu) 1 mg INHALATION RT-BID [facility] Last Admin: 03/11/23 07:51 Dose: 1 mg Calcium Carbonate/Glycine (Calcium Carbonate 500 Mg Chewable) 1,000 mg PO Q4HR PRN PRN Reason: Dyspepsia Cholecalciferol (Cholecalciferol 25 Mcg (1000 Iu) Tablet) 25 mcg PO DAILY [facility] Last Admin: 03/11/23 09:14 Dose: 25 mcg Enoxaparin Sodium (Enoxaparin 40 Mg/0.4 Ml Syringe) 40 mg SQ DAILY [facility] Last Admin: 03/11/23 09:14 Dose: 40 mg Formoterol Fumarate (Formoterol Fumarate 20 Mcg/2 Ml Nebu) 20 mcg INHALATION RT-BID [facility] Last Admin: 03/11/23 07:51 Dose: 20 mcg Lactulose (Lactulose 20 Gm/30 Ml Cup) 20 gm PO DAILY PRN PRN Reason: Constipation Lorazepam (Lorazepam 0.5 Mg Tab) 0.5 mg PO Q6HR PRN PRN Reason: Anxiety Methylprednisolone Sodium Succinate (Methylprednisolone Sod Succi 125 Mg/2 Ml Vial) 60 mg IV Q6HR [facility] Last Admin: 03/11/23 11:27 Dose: 60 mg Metoprolol Tartrate (Metoprolol Tartrate 50 Mg Tab) 150 mg PO BID [facility] Last Admin: 03/11/23 09:15 Dose: 150 mg Naloxone HCl (Naloxone 0.4 Mg/Ml 1 Ml Vial) 0.2 mg IVP Q2M PRN PRN Reason: Opioid Reversal Ondansetron HCl (Ondansetron 4 Mg/2 Ml Vial) 4 mg IVP Q8HR PRN PRN Reason: Nausea And Vomiting Temazepam (Temazepam 15 Mg Cap) 15 mg PO HS PRN PRN Reason: Insomnia Past medical history to include: COPD, diabetes, GERD, hypertension, osteoarthritis, seasonal ALLERGIES, psoriasis, arthritis Social history: Normally lives alone. Currently living with her son. Start smoking 16 years ago. No alcohol. Physical examination: VITAL SIGNS: Afebrile, 80, 20, 151/103, 98% on 4 L GENERAL: BMI 14.5, sitting up on bed, breathing better EYES: Pupils equal. Conjunctiva normal. HEENT: External appearance of nose and ears normal, oral cavity grossly normal. NECK: JVD not raised; masses not palpable. HEART: First and second heart sounds are normal; no edema. LUNGS:[ Respiratory rate increased,; poor air entry, ABDOMEN: Soft, nontender, liver spleen not palpable, no masses palpable. PSYCH: [Alert and oriented x3; mood and affect anxious l. MUSCULOSKELETAL:No Clubbing/cyanosis;muscles-grossly intact. Loss of muscle mass. Bony prominence INVESTIGATIONS, reviewed in the clinical context: Procalcitonin 0.09. COVID-19: Not detected White count 10.7 hemoglobin 14.7 platelets 371 EKG tracing personally reviewed by me-normal sinus rhythm. LVH with strain pattern. Peaked P waves in lead 2 Chest x-ray film personally reviewed by me-hyperinflation. Tubular heart. Flattened diaphragm. No infiltrates Assessment and plan: -Acute end-stage severe COPD exacerbation in a ex-smoker: Slow improvement DuoNeb every 4, nebulized Pulmicort Perforomist. IV Solu-Medrol -No pneumonia. Stop antibiotics -Acute on chronic hypoxic respiratory failure from advanced COPD: Improving 4 L nasal cannula -Essential hypertension Lopressor 150 mg twice a day -Diabetes mellitus type 2 on oral hypoglycemic Follow Accu-Cheks -Hyperlipidemia Fluvastatin -Primary osteoarthritis his multiple joints Pain medications as needed -Severe protein calorie malnutrition from decreased oral intake Ensure one can 3 times a day -Full code Discussed with patient. Down to 4 L nasal cannula. Continue IV Solu-Medrol and other nebulized medications. Stop antibiotics.
[2023-03-11 12:42] LABS: Glucose,Whole Blood 409 mg/dL (70-110)
[2023-03-11] MEDS: INSULIN ASPART (NovoLOG) 100 UNIT/ML VIAL SQ SCH ×2 (13:17→17:31)
[2023-03-11 17:22] LABS: Glucose,Whole Blood 340 mg/dL (70-110)
[2023-03-11 21:29] LABS: Glucose,Whole Blood 240 mg/dL (70-110)
[2023-03-11] MEDS: ATORVASTATIN 10 MG TAB PO SCH (21:54)
[2023-03-11] MEDS: metFORMIN 500 MG TAB PO SCH (21:54)
[2023-03-12] MEDS: methylPREDNISolone SOD SUCCI 125 MG/2 ML VIAL IV SCH ×3 (00:48→12:27)
[2023-03-12] MEDS: IPRATROPIUM-ALBUTEROL 3 ML NEB INHALATION SCH ×4 (01:02→11:08)
[2023-03-12 06:07] LABS: Glucose,Whole Blood 232 mg/dL (70-110)
[2023-03-12] MEDS: HYDROcodone/APAP 10-325MG 1 EACH TAB PO PRN ×2 (06:20→10:43)
[2023-03-12] MEDS: INSULIN ASPART (NovoLOG) 100 UNIT/ML VIAL SQ SCH ×2 (06:21→12:27)
[2023-03-12] MEDS: BUDESONIDE 1 MG/2 ML NEBU INHALATION SCH (07:53)
[2023-03-12] MEDS: FORMOTEROL FUMARATE 20 MCG/2 ML NEBU INHALATION SCH (07:53)
[2023-03-12] MEDS: metFORMIN 500 MG TAB PO SCH (08:23)
[2023-03-12] MEDS: CHOLECALCIFEROL 25 MCG (1000 IU) TABLET PO SCH (08:23)
[2023-03-12] MEDS: METOPROLOL TARTRATE 50 MG TAB PO SCH (08:23)
[2023-03-12] MEDS: ENOXAPARIN 40 MG/0.4 ML SYRINGE SQ SCH (08:24)
[2023-03-12 11:22] LABS: Glucose,Whole Blood 340 mg/dL (70-110)
--- NOTE | 2023-03-12 11:40 | P.PN ---
Subjective Progress Note Date: 03/12/23 I am seeing this patient in new consultation today 03/11/2023 for suspected COPD exacerbation. Patient is a 67-year-old white female with past medical history significant for very severe COPD with an FEV1 26% of predicted, hypertension, hyperlipidemia, diabetes mellitus. Patient does follow with Dr. Barrientos in the office, and was recently treated for a sinus infection approximately one month ago. She did initially improve, however, developed some significant shortness of breath over the past 3 weeks. She also had associated chest tightness and nonproductive cough. She denies any fever, chills, chest pain, hemoptysis. Denies sick contacts. She was given a prednisone taper on outpatient basis, her symptoms initially improved, but worsened once tapering off the steroids. She presented to the emergency room yesterday afternoon. She is currently sitting up in bed, on AIRVO 40 L and 30%, in no acute distress. Chest x-ray on arrival showed no acute cardiopulmonary process, focal consolidation or evidence of pneumonia. CBC on arrival showed a WBC count of 10.7, hemoglobin 14.7, hematocrit 45.7, platelets 371. BMP on arrival showed a sodium of 135, potassium 4.3, chloride 92, serum bicarb 36, BUN 26, creatinine 0.80, glucose 163. Troponin negative 1. Patient is currently being maintained on a combination of bronchodilators, budesonide, formoterol, and IV Solu-Medrol. She is also receiving empiric Augmentin. She is afebrile. Vital signs are stable. The patient is seen today 03/12/2023 in follow-up on the regular medical floor. She is currently sitting up in bed. Awake and alert in no acute distress. Breathing easier today compared to yesterday. Blood culture reveals no growth to date. Blood sugar 232. She remains on DuoNeb inhalations, Pulmicort and Perforomist inhalations, IV Solu-Medrol. Pro calcitonin was 0.09. Objective - Vital Signs Vital signs: Vital Signs Temp 97.9 F 03/12/23 07:31 Pulse 96 03/12/23 11:20 Resp 19 03/12/23 07:31 BP 148/86 03/12/23 07:31 Pulse Ox 95 03/12/23 11:06 FiO2 30 03/11/23 05:10 Intake & Output 03/11/23 03/12/23 03/12/23 18:59 06:59 18:59 Weight 47.174 kg Other: # Voids 1 - Exam GENERAL EXAM: Alert, very pleasant 67-year-old female, on 2 L nasal cannula, comfortable in no apparent distress. HEAD: Normocephalic. EYES: Normal reaction of pupils, equal size. NOSE: Clear with pink turbinates. THROAT: No erythema or exudates. NECK: No masses, no JVD. CHEST: No chest wall deformity. LUNGS: Equal air entry with bilateral end expiratory wheeze. CVS: S1 and S2 normal with no audible murmur, regular rhythm. ABDOMEN: No hepatosplenomegaly, normal bowel sounds, no guarding or rigidity. SPINE: No scoliosis or deformity SKIN: No rashes CENTRAL NERVOUS SYSTEM: No focal deficits, tone is normal in all 4 extremities. EXTREMITIES: There is no peripheral edema. No clubbing, no cyanosis. Peripheral pulses are intact. - Labs CBC & Chem 7: 03/10/23 14:56 03/10/23 15:50 Labs: Abnormal Lab Results - Last 24 Hours (Table) 03/11/23 03/11/23 03/11/23 Range/Units 12:40 17:21 21:27 POC Glucose (mg/dL) 409 H 340 H 240 H (70-110) mg/dL Hemoglobin A1c (<=6.0) % 03/12/23 03/12/23 03/12/23 Range/Units 05:35 06:06 11:21 POC Glucose (mg/dL) 232 H 340 H (70-110) mg/dL Hemoglobin A1c 8.9 H (<=6.0) % Microbiology - Last 24 Hours (Table) 03/10/23 15:50 Blood Culture - Preliminary Blood 03/10/23 16:00 Blood Culture - Preliminary Blood Assessment and Plan Assessment: Acute exacerbation of the patient's very severe COPD with an FEV1 26% of predicted. Chest x-ray shows no focal consolidation or evidence of pneumonia. Pro calcitonin 0.09. Acute hypoxemic respiratory failure, initially requiring AIRVO 30 L and 40%, currently on 2 L nasal cannula Essential hypertension Hyperlipidemia Type 2 diabetes mellitus, [id number] Remote ex-smoker Plan: The patient was seen and evaluated Medications are reviewed Cleared for discharge from the pulmonary standpoint Continue her home pulmonary medications Continue prednisone taper May require home oxygen Follow-up in the office in 1 week I have personally seen and examined the patient, performed the documentation and the assessment and plan as written. Number of minutes spent on the visit: 10.
[2023-03-12 14:26] VITALS: BP 155/87; PULSE 103; RESP 17; TEMP 97.8
[2023-03-12 15:11] VITALS: BMI 14.5
--- NOTE | 2023-03-12 20:34 | P.DS ---
Providers Date of admission: 03/10/23 15:49 Expected date of discharge: 03/12/23 Attending physician: Candido Garzon Consults: 03/10/23 15:51 Consult Physician Urgent Consulting Provider: Gabriel Barrientos Consult Reason/Comments: COPD exacerbation Do you want consulting provider notified?: Yes Primary care physician: Aurelia Clement [facility] Course: Chief Complaint: Short of breath This is a pleasant 67-year-old patient who follows with Dr. Aurelia Clement. Seismic Engineer Dr. Barrientos. Chronic stable medical conditions include diabetes, GERD, hypertension, osteoporosis, seasonal ALLERGIES, psoriasis. Patient saw Dr. Barrientos a month ago. Has been progressively getting more and more short of breath. Can barely walk. Son decided to bring her to his place. Patient will get short of breath with eating. Patient as an state COPD. Also wheezing. Currently no fever no chills. Has been losing weight. No cough no sputum Admitted with acute severe COPD exacerbation and acute respiratory failure. Started on DuoNeb, IV Solu-Medrol. March 11: Sitting up in bed. Breathing better. Did eat some breakfast. No cough. No sputum. stop antibiotics.. Continue with IV Solu-Medrol and DuoNeb. March 12: Doing much better. Breathing better. Cleared by pulmonary for discharge. Discharged on prednisone taper. No antibiotics. Past medical history to include: COPD, diabetes, GERD, hypertension, osteoarthritis, seasonal ALLERGIES, psoriasis, arthritis Social history: Normally lives alone. Currently living with her son. Start smoking 16 years ago. No alcohol. Physical examination: VITAL SIGNS: 97.8, 103, 17, 1 5587, 99% on 2 L GENERAL: BMI 14.5, sitting up on bed, breathing better EYES: Pupils equal. Conjunctiva normal. HEENT: External appearance of nose and ears normal, oral cavity grossly normal. NECK: JVD not raised; masses not palpable. HEART: First and second heart sounds are normal; no edema. LUNGS:[ Respiratory rate increased,; poor air entry, ABDOMEN: Soft, nontender, liver spleen not palpable, no masses palpable. PSYCH: [Alert and oriented x3; mood and affect anxious l. MUSCULOSKELETAL:No Clubbing/cyanosis;muscles-grossly intact. Loss of muscle mass. Bony prominence INVESTIGATIONS, reviewed in the clinical context: Procalcitonin 0.09. COVID-19: Not detected White count 10.7 hemoglobin 14.7 platelets 371 EKG tracing personally reviewed by me-normal sinus rhythm. LVH with strain pattern. Peaked P waves in lead 2 Chest x-ray film personally reviewed by me-hyperinflation. Tubular heart. Flattened diaphragm. No infiltrates Assessment and plan: -Acute end-stage severe COPD exacerbation in a ex-smoker: Better DuoNeb every 4, nebulized Pulmicort Perforomist. IV Solu-Medrol Discharge in Combivent and Symbicort. Patient to use a spacer. -No pneumonia. Stop antibiotics -Acute on chronic hypoxic respiratory failure from advanced COPD: Improving 4 L nasal cannula -Essential hypertension Lopressor 150 mg twice a day -Diabetes mellitus type 2 on oral hypoglycemic Follow Accu-Cheks -Hyperlipidemia Fluvastatin -Primary osteoarthritis his multiple joints Pain medications as needed -Severe protein calorie malnutrition from decreased oral intake Ensure one can 3 times a day -Full code Disposition: Home Plan - Discharge Summary Discharge Rx Participant: No New Discharge Prescriptions: New predniSONE 10 mg PO DAILY #30 tab Continue Ipratropium/Albuterol Sulfate [Combivent Respimat Inhaler] 1 puff INHALATION RT-QID Budesonide-Formot 160-4.5 Mcg [Symbicort 160-4.5 Mcg Inhaler] 2 puff INHALATION RT-BID metFORMIN HCL [Glucophage] 1,000 mg PO BID Metoprolol Tartrate [Lopressor] 150 mg PO BID Fluvastatin Sodium [Fluvastatin ER] 80 mg PO HS Loratadine [Claritin] 10 mg PO DAILY PRN PRN Reason: Allergy Symptoms HYDROcodone/APAP 10-325MG [[place] 10-325] 0.5 tab PO Q4HR PRN PRN Reason: Pain Cholecalciferol [Vitamin D3 (25 Mcg = 1000 Iu)] 25 mcg PO DAILY Discontinued hydroCHLOROthiazide 50 mg PO DAILY Discharge Medication List Budesonide-Formot 160-4.5 Mcg [Symbicort 160-4.5 Mcg Inhaler] 2 puff INHALATION RT-BID 09/20/20 [History] Ipratropium/Albuterol Sulfate [Combivent Respimat Inhaler] 1 puff INHALATION RT- QID 09/20/20 [History] Metoprolol Tartrate [Lopressor] 150 mg PO BID 09/20/20 [History] metFORMIN HCL [Glucophage] 1,000 mg PO BID 09/20/20 [History] Cholecalciferol [Vitamin D3 (25 Mcg = 1000 Iu)] 25 mcg PO DAILY 03/10/23 [History] Fluvastatin Sodium [Fluvastatin ER] 80 mg PO HS 03/10/23 [History] HYDROcodone/APAP 10-325MG [[place] 10-325] 0.5 tab PO Q4HR PRN 03/10/23 [History] Loratadine [Claritin] 10 mg PO DAILY PRN 03/10/23 [History] predniSONE 10 mg PO DAILY #30 tab 03/12/23 [Rx] Follow up Appointment(s)/Referral(s): Aurelia Clement MD [Primary Care Provider] - 03/27/23 10:20 am Gabriel Barrientos DO [Doctor of Osteopathic Medicine] - 03/18/23 9:00 am Patient Instructions/Handouts: COPD (Chronic Obstructive Pulmonary Disease) (DC) Activity/Diet/Wound Care/Special Instructions: Home 02 delivered to room. Patient received spacer. Discharge Disposition: HOME SELF-CARE Care Plan Goals (MU): [facility] will deliver portable 02 to hospital and set up home concentrator for delivery at home. Any questions please call agency. [phone]
== END 2023-03-12 14:52 | disposition home or self-care (01) | DRG 189 ==
LOC: EC 13:41 → 4SSUR 15:49
PROVIDERS: ADMIT Hospitalist; ATTEND Hospitalist
DX: J96.21 Acute and chronic respiratory failure with hypoxia (principal); E43 Unspecified severe protein-calorie malnutrition; J44.1 Chronic obstructive pulmonary disease with (acute) exacerbation; Z68.1 Body mass index [BMI] 19.9 or less, adult; G47.00 Insomnia, unspecified; I10 Essential (primary) hypertension; E78.5 Hyperlipidemia, unspecified; F41.9 Anxiety disorder, unspecified; E11.9 Type 2 diabetes mellitus without complications; J30.2 Other seasonal allergic rhinitis; K21.9 Gastro-esophageal reflux disease without esophagitis; K59.00 Constipation, unspecified; L40.9 Psoriasis, unspecified; M81.0 Age-related osteoporosis without current pathological fracture; M15.9 Polyosteoarthritis, unspecified; Z79.51 Long term (current) use of inhaled steroids; Z79.84 Long term (current) use of oral hypoglycemic drugs; Z79.899 Other long term (current) drug therapy; Z94.7 Corneal transplant status; Z96.652 Presence of left artificial knee joint; Z60.2 Problems related to living alone
CPT/HCPCS: 36415; 71046; 80053; 83036; 83605; 83735; 84145; 84484; 85025; 87040; 87635; 93005; 94640; 96372; 96374; 96375; 99285

== ENCOUNTER 2023-06-26 18:15 | Emergency (ER) | payer MEDICARE ==
[2023-06-26] MEDS ORDERED: PROPARACAINE 0.5% OPHTH DROPS 15 ML BTL LEFT EYE STA (18:45)
[2023-06-26] MEDS ORDERED: FLUORESCEIN STRIPS 1 MG STRIP LEFT EYE ONE (18:45)
--- NOTE | 2023-06-26 19:02 | ED ---
Skin/Abscess/FB HPI - General Chief complaint: Skin/Abscess/Foreign Body Stated complaint: All Over Body Pain, post Shingles Time Seen by Provider: 06/26/23 18:30 Source: patient Mode of arrival: wheelchair Limitations: no limitations - History of Present Illness Initial comments: 67-year-old female presenting with chief complaint of burning pain to the left side of face. Patient has history of shingles. She states that she recently finished a course of antivirals. States that she has been having sharp burning stabbing pain to the face. She states that she is starting to get a lesion to the tip of her nose again. She sees no other lesions at this time. She denies any eye pain or blurry vision. No vision or hearing changes. No fevers or chills. No nausea or vomiting. No chest pain or difficulty breathing. - Related Data Home Medications Medication Instructions Recorded Confirmed Budesonide-Formot 160-4.5 Mcg 2 puff INHALATION RT-BID 09/20/20 04/11/23 [Symbicort 160-4.5 Mcg Inhaler] Ipratropium/Albuterol Sulfate 1 puff INHALATION RT-QID 09/20/20 04/11/23 [Combivent Respimat Inhaler] metFORMIN HCL [Glucophage] 1,000 mg PO BID 09/20/20 04/11/23 Cholecalciferol [Vitamin D3 (25 25 mcg PO DAILY 03/10/23 04/11/23 Mcg = 1000 Iu)] Fluvastatin Sodium [Fluvastatin ER] 80 mg PO HS 03/10/23 04/11/23 HYDROcodone/APAP 10-325MG [[place] 0.5 tab PO Q4HR PRN 03/10/23 04/11/23 10-325] Loratadine [Claritin] 10 mg PO DAILY PRN 03/10/23 04/11/23 ALPRAZolam [Xanax] 0.25 mg PO DAILY PRN 04/11/23 04/11/23 Furosemide [Lasix] 20 mg PO DAILY 04/11/23 04/11/23 predniSONE 5 mg PO DAILY 04/11/23 04/11/23 Previous Rx's Medication Instructions Recorded Aspirin 81 mg PO DAILY #30 tab 04/15/23 Cephalexin [Keflex] 500 mg PO Q8HR 10 Days #30 cap 04/15/23 Metoprolol Tartrate [Lopressor] 100 mg PO BID #0 04/15/23 hydroCHLOROthiazide [Hydrodiuril] 25 mg PO DAILY #30 tab 04/15/23 lisinopriL [Zestril] 5 mg PO BID #60 tab 04/15/23 predniSONE 10 mg PO DIRECTED #30 tab 04/15/23 Acyclovir [Zovirax] 800 mg PO 5XD 10 Days #50 tab 06/26/23 HYDROcodone/APAP 7.5-325MG [[place] 1 tab PO Q4H PRN 3 Days #18 tab 06/26/23 7.5-325] Allergies Allergy/AdvReac Type Severity Reaction Status Date / Time No Known Allergies Allergy Verified 04/11/23 13:36 Review of Systems ROS Statement: Those systems with pertinent positive or pertinent negative responses have been documented in the HPI. ROS Other: All systems not noted in ROS Statement are negative. Past Medical History Past Medical History: Asthma, COPD, Diabetes Mellitus, Eye Disorder, GERD/Reflux, Hypertension, Osteoarthritis (OA) Additional Past Medical History / Comment(s): Seasonal allergies, has lost weight in last 3 months. psoriasis, varicose viens History of Any Multi-Drug Resistant Organisms: None Reported Past Surgical History: Appendectomy, Hysterectomy, Joint Replacement Additional Past Surgical History / Comment(s): L total knee in 2019 rt corneal transplant, 8 other surgeries on rt eye Past Anesthesia/Blood Transfusion Reactions: No Reported Reaction Past Psychological History: No Psychological Hx Reported Smoking Status: Former smoker Past Alcohol Use History: None Reported Past Drug Use History: None Reported - Past Family History Brother(s) Family Medical History: Cancer General Exam Limitations: no limitations General appearance: alert, in no apparent distress Head exam: Present: atraumatic, normocephalic, normal inspection Eye exam: Present: normal appearance, PERRL, EOMI Neck exam: Present: normal inspection, full ROM Respiratory exam: Present: normal lung sounds bilaterally. Absent: respiratory distress, wheezes, rales, rhonchi, stridor Cardiovascular Exam: Present: regular rate, normal rhythm, normal heart sounds. Absent: systolic murmur, diastolic murmur, rubs, gallop, clicks Neurological exam: Present: alert, oriented X3, CN II-XII intact Psychiatric exam: Present: normal affect, normal mood Skin exam: Present: vesicles (Small vesicle noted to this for the nose, no other vesicles seen) Course Vital Signs 06/26/23 06/26/23 18:26 20:33 Temperature 98.6 F 98.4 F Pulse Rate 90 89 Respiratory 16 18 Rate Blood Pressure 140/73 112/71 O2 Sat by Pulse 98 92 L Oximetry Medical Decision Making - Medical Decision Making Was pt. sent in by a medical professional or institution (, DOLLY, HOTEL RECREATIONAL FACILITIES MANAGER, urgent care, hospital, or fdc...) When possible be specific @ -No Did you speak to anyone other than the patient for history (EMS, parent, family, police, friend...)? What history was obtained from this source @ -No Did you review nursing and triage notes (agree or disagree)? Why? @ -I reviewed and agree with nursing and triage notes Were old charts reviewed (outside hosp., previous admission, EMS record, old EKG, old radiological studies, urgent care reports/EKG's, fdc records)? Report findings @ -No old charts were reviewed Differential Diagnosis (chest pain, altered mental status, abdominal pain women, abdominal pain men, vaginal bleeding, weakness, fever, dyspnea, syncope, headache, dizziness, GI bleed, back pain, seizure, CVA, palpatations, mental health, musculoskeletal)? @ -Differential includes postherpetic neuralgia, cellulitis, trigeminal neuralgia, this is not an all inclusive list EKG interpreted by me (3pts min.). @ -As above X-rays interpreted by me (1pt min.). @ -None done CT interpreted by me (1pt min.). @ -None done U/S interpreted by me (1pt. min.). @ -None done What testing was considered but not performed or refused? (CT, X-rays, U/S, labs)? Why? @ -None What meds were considered but not given or refused? Why? @ -None Did you discuss the management of the patient with other professionals (professionals i.e. DOLLY Marshall, HOTEL RECREATIONAL FACILITIES MANAGER, lab, RT, psych nurse, social worker aide, software client architect, teacher, chief data officer, correctional case manager)? Give summary @ -No Was smoking cessation discussed for >3mins.? @ -No Was critical care preformed (if so, how long)? @ -No Were there social determinants of health that impacted care today? How? (Homelessness, low income, unemployed, alcoholism, drug addiction, transportation, low edu. Level, literacy, decrease access to med. care, senior care, rehab)? @ -No Was there de-escalation of care discussed even if they declined (Discuss DNR or withdrawal of care, Hospice)? DNR status @ -No What co-morbidities impacted this encounter? (DM, HTN, Smoking, COPD, CAD, Cancer, CVA, ARF, Chemo, Hep., AIDS, mental health diagnosis, sleep apnea, morbid obesity)? @ -None Was patient admitted / discharged? Hospital course, mention meds given and route, prescriptions, significant lab abnormalities, going to OR and other pertinent info. @ -[age]-old female with history of shingles presenting with chief complaint of burning pain to the left side of the face. Patient recently completed a course of antivirals which was 7 days long. On physical examination there is a faint lesion to the tip of the nose, no other vesicles noted. No vesicles noted in the IAC. Wood's lamp examination is negative for dendritic lesions. Patient is started on a longer course of acyclovir. She is provided with [place] for pain management. Follow-up with PCP. Report back to ER with any new or worsening symptoms. Discussed return parameters and answered all questions. Patient conveyed verbal understanding and agreed to the plan. I discussed this case in detail with my attending Dr. Brown Undiagnosed new problem with uncertain prognosis? @ -No Drug Therapy requiring intensive monitoring for toxicity (Heparin, Nitro, Insulin, Cardizem)? @ -No Were any procedures done? @ -No Diagnosis/symptom? @ -Herpes zoster Acute, or Chronic, or Acute on Chronic? @ -Acute Uncomplicated (without systemic symptoms) or Complicated (systemic symptoms)? @ -Uncomplicated Side effects of treatment? @ -No Exacerbation, Progression, or Severe Exacerbation? @ -No Poses a threat to life or bodily function? How? (Chest pain, [place], [place], pneumonia, PE, COPD, DKA, ARF, appy, cholecystitis, CVA, Diverticulitis, Homicidal, Suicidal, threat to staff... and all critical care pts) @ -No Disposition Clinical Impression: Post herpetic neuralgia Disposition: HOME SELF-CARE Condition: Good Instructions (If sedation given, give patient instructions): Shingles (ED) Additional Instructions: Follow up with PCP. Report back to ER with any new or worsening symptoms. Prescriptions: HYDROcodone/APAP 7.5-325MG [[place] 7.5-325] 1 tab PO Q4H PRN 3 Days #18 tab PRN Reason: Pain Acyclovir [Zovirax] 800 mg PO 5XD 10 Days #50 tab Is patient prescribed a controlled substance at d/c from ED?: Yes When asked, does pt state using other controlled substances?: No If prescribed controlled substance>3 days was MAPS reviewed?: Prescribed <3 Days If opioid is for acute pain is fill amount 7 days or less?: Yes Referrals: Gabriel Barrientos DO [Primary Care Provider] - 1-2 days Time of Disposition: 20:01
[2023-06-26] MEDS ORDERED: HYDROcodone/APAP 7.5-325MG 1 EACH TAB PO ONE (20:01)
[2023-06-26] MEDS ORDERED: KETOROLAC 15 MG/ML 1 ML VIAL IM STA (20:01)
[2023-06-26 20:39] VITALS: BP 112/71; PULSE 89; RESP 18; TEMP 98.4
== END 2023-06-26 20:35 | disposition home or self-care (01) ==
LOC: EC 18:15
DX: B02.29 Other postherpetic nervous system involvement (principal); E11.9 Type 2 diabetes mellitus without complications; I10 Essential (primary) hypertension; J44.9 Chronic obstructive pulmonary disease, unspecified; K21.9 Gastro-esophageal reflux disease without esophagitis; M19.90 Unspecified osteoarthritis, unspecified site; Z87.891 Personal history of nicotine dependence; Z79.84 Long term (current) use of oral hypoglycemic drugs; Z79.51 Long term (current) use of inhaled steroids; Z79.899 Other long term (current) drug therapy
CPT/HCPCS: 99283; 96372; J1885

== ENCOUNTER → 2024-03-26 | Outpatient (CLI) | payer MEDICARE ==
[2024-03-26 13:33] VITALS: BP 135/76; PULSE 86; RESP 14
--- NOTE | 2024-03-26 14:54 | P.PAINPG ---
PQRS Measure Charge Sheet Comment: HISTORY OF PRESENT ILLNESS: A 68 yr old female on portable O2 w sister in law at side as a referral from Dr Lezama presents today w severe and chronic BL knee and finger pain secondary to DJD, post herpetic neuralgia for evaluation. Pt states pain level is provoked at 8 /10 in intensity, constant, localized in the fingers and knees, sharp in character without shooting pain . Pain has no provocation. Pain is alleviated by PT x 6 wks which ended in Dec 2023, physician guided home stretches daily since Dec 2023, medications ([place], Neurontin, Robaxin), topical BioFreeze, heat & ice, repositioning and rest . PMH: OA, COPD, IDDM II, GERD, HTN, Psoriasis, Seasonal Allergies PSH: Appendectomy, Hysterectomy, L Total Knee Replacement (2019), R Corneal Transplant and 8 other R eye surgeries SH: Former tobacco user, No ETOH use, No illicit drug use FH: Bro- [place] All: See list Meds: See list REVIEW OF ORGAN SYSTEMS: CONSTITUTIONAL: No fevers or chills. No recent weight loss. NEUROLOGICAL: + numbness and tingling along the distal extremities. No seizure disorders or headaches. MUSCULOSKELETAL: + pain PSYCHIATRIC: Denies current depression or suicidal thoughts. Physical Examinations : Constitutional : Cooperative , not in acute distress . Neurologic : Cranial nerve II to XII intact. No focal neurological deficits. Psychiatric : alert & oriented x 3. Matching mood & appropriate affect. Judgment & insight intact. Musculoskeletal : Cervical Spine Motor strength in the deltoid and biceps: Normal right side. Normal Left side Motor strength biceps and the wrist extensors: Normal right side . Normal left side Motor strength in the triceps muscle: Normal right side. Normal left side Deep tendon reflexes: Normal at the biceps. Normal at Brachioradialis. Normal at triceps Vertebral body tenderness to deep palpation over Cervical facet loading test: positive bilaterally Spurling test: positive bilaterally Neck distraction test: positive bilaterally Pancho sign: positive bilaterally Lumbar spine BL Knee diffuse TTP Motor strength lower extremities ,thigh and legs 5/5 Right side , 5/5 Left side Deep tendon reflexes : Normal Knee Jerk. Normal Ankle Jerk Vertebral body tenderness over Lundberg Test positive Lumbar facet Loading Test: positive Right / positive Left Range of motion of the lumbar spine Flexion 30 degrees, extension 10 degrees Straight Leg Raise test: Left/ Right positive at degrees Janae test: positive right / positive left. Severe tenderness over the Sacroiliac joint on the Right / Left sides Gaenslen test: positive bilaterally Seated flexion test: positive bilaterally. Sacral spine : Severe tenderness over the Sacroiliac joint: right side / left side Range of motion: Flexion of the lumbar spine <60 degrees Range of motion: Extension of the lumbar spine <20 degrees Gaenslen's Test positive Janae test: positive right side / left side Thigh Thrust Test Sacral Thrust Test Assessment/ Plan : Post Herpetic Neuralgia Recommendation of medication management. [place] 10/325mg #60 w 1 RF. Use, side effects, adverse reactions, safe storage discussed. Opiate/ narcotic agreement signed 03/26/24. All questions answered. I have spent greater than 30 minutes on patient care today. Dr Downey was available by phone for the evaluation of this patient. The time was used to review the medical records including relevant urine studies and Prescription history (MAPs), review of the available imaging, evaluation and examination of the patient, coordination of care with the medical staff and if applicable referring physicians, as well as creation of the medical record - Pain Location Bilateral Generalized Non-Pharmacological Interventions: Physical Therapy, Position/Reposition, Relaxation Technique, Sitting Pharmacological Interventions: PRN Medication, Scheduled Medication, Topical Medication Home Medications: Ambulatory Orders Budesonide-Formot 160-4.5 Mcg [Symbicort 160-4.5 Mcg Inhaler] 2 puff INHALATION RT-BID 09/20/20 metFORMIN HCL [Glucophage] 1,000 mg PO BID 09/20/20 Cholecalciferol [Vitamin D3 (25 Mcg = 1000 Iu)] 25 mcg PO DAILY 03/10/23 Fluvastatin Sodium [Fluvastatin ER] 80 mg PO HS 03/10/23 Loratadine [Claritin] 10 mg PO DAILY PRN 03/10/23 Aspirin 81 mg PO DAILY #30 tab 04/15/23 hydroCHLOROthiazide [Hydrodiuril] 25 mg PO DAILY #30 tab 04/15/23 ALPRAZolam [Xanax] 0.25 mg PO DAILY PRN #1 tab 12/03/23 Benzonatate [Tessalon Perles] 200 mg PO BID PRN cap 12/03/23 Budesonide [Pulmicort] 1 mg INHALATION RT-BID ml 12/03/23 Diltiazem Cd [Cardizem CD] 180 mg PO DAILY cap 12/03/23 HYDROcodone/APAP 10-325MG [[place] 10-325] 0.5 tab PO Q4HR PRN #7 tab 12/03/23 INSULIN ASPART (NovoLOG) [NovoLOG (formulary)] 0 unit SQ ACHS each 12/03/23 INSULIN ASPART (NovoLOG) [NovoLOG (formulary)] 4 unit SQ AC-TID each 12/03/23 Insulin Detemir (Levemir) [Levemir] 12 unit SQ DAILY@0700 each 12/03/23 Ipratropium-Albuterol Nebulize [Duoneb 0.5 mg-3 mg/3 ml Soln] 3 ml INHALATION RT-Q4H PRN each 12/03/23 Lidocaine 4% Patch 1 patch TOPICAL DAILY patch 12/03/23 Losartan [Cozaar] 100 mg PO DAILY tab 12/03/23 Metoprolol Tartrate [Lopressor] 50 mg PO BID tab 12/03/23 Pantoprazole [Protonix] 40 mg PO AC-BRKFST tab 12/03/23 guaiFENesin [Mucinex] 600 mg PO Q12HR PRN tab 12/03/23 predniSONE [Deltasone] See Rx Instructions .ROUTE .COMPLEX #30 tab 12/03/23 Controlled Substance Measures - Controlled Substance Measures Is patient prescribed a controlled substance at discharge?: Yes When asked, does pt state using other controlled substances?: Yes If prescribed controlled substance>3 days was MAPS reviewed?: Yes If Rx opioid, was Start Talking consent form obtained?: Yes Was information provided regarding opioid addiction?: Yes
== END ==
LOC: PNWHC3 12:59
PROVIDERS: ATTEND Specialist
DX: M71.38 Other bursal cyst, other site (principal); B02.29 Other postherpetic nervous system involvement; Z88.8 Allergy status to other drugs, medicaments and biological substances; Z87.891 Personal history of nicotine dependence
CPT/HCPCS: 99211

== ENCOUNTER → 2024-05-28 | Outpatient (CLI) | payer MEDICARE ==
[2024-05-28 13:16] VITALS: BP 116/54; PULSE 62; RESP 17
--- NOTE | 2024-05-28 14:41 | P.PAINPG ---
PQRS Measure Charge Sheet Comment: HISTORY OF PRESENT ILLNESS: A 68 yr old wheelchair bound female on portable O2 w sister in law at side presents today w severe and chronic BL knee and finger pain secondary to DJD, post herpetic neuralgia for medication refills. Pt states pain level is provoked at 8 /10 in intensity, constant, localized in the fingers and knees, sharp in character without shooting pain . Pain has no provocation. Pain is alleviated by PT x 6 wks which ended in Dec 2023, physician guided home stretches daily since Dec 2023, medications , topical, use of a wheelchair for ambulatory assistance, heat & ice, repositioning and rest . Interventional procedures include Medications include [place] 10/325mg #60, Neurontin, Robaxin, BioFreeze Gel REVIEW OF ORGAN SYSTEMS: CONSTITUTIONAL: No fevers or chills. No recent weight loss. NEUROLOGICAL: + numbness and tingling along the distal extremities. No seizure disorders or headaches. MUSCULOSKELETAL: + pain PSYCHIATRIC: Denies current depression or suicidal thoughts. Physical Examinations : Constitutional : Cooperative , not in acute distress . Neurologic : Cranial nerve II to XII intact. No focal neurological deficits. Psychiatric : alert & oriented x 3. Matching mood & appropriate affect. Judgment & insight intact. Musculoskeletal : Cervical Spine Motor strength in the deltoid and biceps: Normal right side. Normal Left side Motor strength biceps and the wrist extensors: Normal right side . Normal left side Motor strength in the triceps muscle: Normal right side. Normal left side Deep tendon reflexes: Normal at the biceps. Normal at Brachioradialis. Normal at triceps Vertebral body tenderness to deep palpation over Cervical facet loading test: positive bilaterally Spurling test: positive bilaterally Neck distraction test: positive bilaterally Pancho sign: positive bilaterally Lumbar spine BL Knee diffuse TTP Motor strength lower extremities ,thigh and legs 5/5 Right side , 5/5 Left side Deep tendon reflexes : Normal Knee Jerk. Normal Ankle Jerk Vertebral body tenderness over Lundberg Test positive Lumbar facet Loading Test: positive Right / positive Left Range of motion of the lumbar spine Flexion 30 degrees, extension 10 degrees Straight Leg Raise test: Left/ Right positive at degrees Janae test: positive right / positive left. Severe tenderness over the Sacroiliac joint on the Right / Left sides Gaenslen test: positive bilaterally Seated flexion test: positive bilaterally. Sacral spine : Severe tenderness over the Sacroiliac joint: right side / left side Range of motion: Flexion of the lumbar spine <60 degrees Range of motion: Extension of the lumbar spine <20 degrees Gaenslen's Test positive Janae test: positive right side / left side Thigh Thrust Test Sacral Thrust Test Assessment/ Plan : Post Herpetic Neuralgia Recommendation of medication management. [place] 10/325mg #60 w 1 RF. Use, side effects, adverse reactions, safe storage discussed. Opiate/ narcotic agreement signed 03/26/24. UDS collected 05/28/24. All questions answered. I have spent greater than 30 minutes on patient care today. Dr Downey was available by phone for the evaluation of this patient. The time was used to review the medical records including relevant urine studies and Prescription history (MAPs), review of the available imaging, evaluation and examination of the patient, coordination of care with the medical staff and if applicable referring physicians, as well as creation of the medical record PQRS Narrative: Hx Alcohol Use (MH) No Home Medications: Ambulatory Orders Budesonide-Formot 160-4.5 Mcg [Symbicort 160-4.5 Mcg Inhaler] 2 puff INHALATION RT-BID 09/20/20 metFORMIN HCL [Glucophage] 1,000 mg PO BID 09/20/20 Cholecalciferol [Vitamin D3 (25 Mcg = 1000 Iu)] 25 mcg PO DAILY 03/10/23 Fluvastatin Sodium [Fluvastatin ER] 80 mg PO HS 03/10/23 Loratadine [Claritin] 10 mg PO DAILY PRN 03/10/23 Aspirin 81 mg PO DAILY #30 tab 04/15/23 hydroCHLOROthiazide [Hydrodiuril] 25 mg PO DAILY #30 tab 04/15/23 ALPRAZolam [Xanax] 0.25 mg PO DAILY PRN #1 tab 12/03/23 Benzonatate [Tessalon Perles] 200 mg PO BID PRN cap 12/03/23 Budesonide [Pulmicort] 1 mg INHALATION RT-BID ml 12/03/23 Diltiazem Cd [Cardizem CD] 180 mg PO DAILY cap 12/03/23 INSULIN ASPART (NovoLOG) [NovoLOG (formulary)] 0 unit SQ ACHS each 12/03/23 INSULIN ASPART (NovoLOG) [NovoLOG (formulary)] 4 unit SQ AC-TID each 12/03/23 Insulin Detemir (Levemir) [Levemir] 12 unit SQ DAILY@0700 each 12/03/23 Ipratropium-Albuterol Nebulize [Duoneb 0.5 mg-3 mg/3 ml Soln] 3 ml INHALATION RT-Q4H PRN each 12/03/23 Lidocaine 4% Patch 1 patch TOPICAL DAILY patch 12/03/23 Losartan [Cozaar] 100 mg PO DAILY tab 12/03/23 Metoprolol Tartrate [Lopressor] 50 mg PO BID tab 12/03/23 Pantoprazole [Protonix] 40 mg PO AC-BRKFST tab 12/03/23 guaiFENesin [Mucinex] 600 mg PO Q12HR PRN tab 12/03/23 predniSONE [Deltasone] See Rx Instructions .ROUTE .COMPLEX #30 tab 12/03/23 HYDROcodone/APAP 10-325MG [[place] 10-325] 1 tab PO BID PRN 30 Days #60 tab 05/28/24 HYDROcodone/APAP 10-325MG [[place] 10-325] 1 tab PO BID PRN 30 Days #60 tab 05/28/24 Controlled Substance Measures - Controlled Substance Measures Is patient prescribed a controlled substance at discharge?: Yes When asked, does pt state using other controlled substances?: Yes If prescribed controlled substance>3 days was MAPS reviewed?: Yes
== END ==
LOC: PNWHC3 10:53
PROVIDERS: ATTEND Specialist
DX: B02.23 Postherpetic polyneuropathy
CPT/HCPCS: 80307; 99211

== ENCOUNTER → 2024-07-22 | Outpatient (CLI) | payer MEDICARE ==
[2024-07-22 13:35] VITALS: BP 104/69; PULSE 72; RESP 16
--- NOTE | 2024-07-22 14:42 | P.PAINPG ---
PQRS Measure Charge Sheet Comment: HISTORY OF PRESENT ILLNESS: A 69 yr old wheelchair bound female on portable O2 w sister in law at side presents today w severe and chronic BL knee and finger pain secondary to DJD, post herpetic neuralgia for medication refills. Pt states pain level is provoked at 4-6 /10 in intensity, constant, localized in the fingers and knees, sharp in character without shooting pain . Pain has no provocation. Pain is alleviated by PT x 6 wks which ended in Dec 2023, physician guided home stretches daily since Dec 2023, medications , topical, use of a wheelchair for ambulatory assistance, heat & ice, repositioning and rest . Interventional procedures include Medications include [place] 10/325mg #60, Neurontin, Robaxin, BioFreeze Gel REVIEW OF ORGAN SYSTEMS: CONSTITUTIONAL: No fevers or chills. No recent weight loss. NEUROLOGICAL: + numbness and tingling along the distal extremities. No seizure disorders or headaches. MUSCULOSKELETAL: + pain PSYCHIATRIC: Denies current depression or suicidal thoughts. Physical Examinations : Constitutional : Cooperative , not in acute distress . Neurologic : Cranial nerve II to XII intact. No focal neurological deficits. Psychiatric : alert & oriented x 3. Matching mood & appropriate affect. Judgment & insight intact. Musculoskeletal : Cervical Spine Motor strength in the deltoid and biceps: Normal right side. Normal Left side Motor strength biceps and the wrist extensors: Normal right side . Normal left side Motor strength in the triceps muscle: Normal right side. Normal left side Deep tendon reflexes: Normal at the biceps. Normal at Brachioradialis. Normal at triceps Vertebral body tenderness to deep palpation over Cervical facet loading test: positive bilaterally Spurling test: positive bilaterally Neck distraction test: positive bilaterally Pancho sign: positive bilaterally Lumbar spine BL Knee diffuse TTP Motor strength lower extremities ,thigh and legs 5/5 Right side , 5/5 Left side Deep tendon reflexes : Normal Knee Jerk. Normal Ankle Jerk Vertebral body tenderness over Lundberg Test positive Lumbar facet Loading Test: positive Right / positive Left Range of motion of the lumbar spine Flexion 30 degrees, extension 10 degrees Straight Leg Raise test: Left/ Right positive at degrees Janae test: positive right / positive left. Severe tenderness over the Sacroiliac joint on the Right / Left sides Gaenslen test: positive bilaterally Seated flexion test: positive bilaterally. Sacral spine : Severe tenderness over the Sacroiliac joint: right side / left side Range of motion: Flexion of the lumbar spine <60 degrees Range of motion: Extension of the lumbar spine <20 degrees Gaenslen's Test positive Janae test: positive right side / left side Thigh Thrust Test Sacral Thrust Test Assessment/ Plan : Post Herpetic Neuralgia, BL Knee DJD Recommendation of medication management. [place] 10/325mg #60 w 1 RF. Use, side effects, adverse reactions, safe storage discussed. Opiate/ narcotic agreement signed 03/26/24. UDS from 05/28/24 reviewed and consistent. All questions answered. I have spent greater than 30 minutes on patient care today. Dr Downey was available by phone for the evaluation of this patient. The time was used to review the medical records including relevant urine studies and Prescription history (MAPs), review of the available imaging, evaluation and examination of the patient, coordination of care with the medical staff and if applicable referring physicians, as well as creation of the medical record PQRS Narrative: Hx Alcohol Use (MH) No Home Medications: Ambulatory Orders Budesonide-Formot 160-4.5 Mcg [Symbicort 160-4.5 Mcg Inhaler] 2 puff INHALATION RT-BID 09/20/20 metFORMIN HCL [Glucophage] 1,000 mg PO BID 09/20/20 Cholecalciferol [Vitamin D3 (25 Mcg = 1000 Iu)] 25 mcg PO DAILY 03/10/23 Fluvastatin Sodium [Fluvastatin ER] 80 mg PO HS 03/10/23 Loratadine [Claritin] 10 mg PO DAILY PRN 03/10/23 Aspirin 81 mg PO DAILY #30 tab 04/15/23 hydroCHLOROthiazide [Hydrodiuril] 25 mg PO DAILY #30 tab 04/15/23 ALPRAZolam [Xanax] 0.25 mg PO DAILY PRN #1 tab 12/03/23 Benzonatate [Tessalon Perles] 200 mg PO BID PRN cap 12/03/23 Budesonide [Pulmicort] 1 mg INHALATION RT-BID ml 12/03/23 Diltiazem Cd [Cardizem CD] 180 mg PO DAILY cap 12/03/23 INSULIN ASPART (NovoLOG) [NovoLOG (formulary)] 0 unit SQ ACHS each 12/03/23 INSULIN ASPART (NovoLOG) [NovoLOG (formulary)] 4 unit SQ AC-TID each 12/03/23 Insulin Detemir (Levemir) [Levemir] 12 unit SQ DAILY@0700 each 12/03/23 Ipratropium-Albuterol Nebulize [Duoneb 0.5 mg-3 mg/3 ml Soln] 3 ml INHALATION RT-Q4H PRN each 12/03/23 Lidocaine 4% Patch 1 patch TOPICAL DAILY patch 12/03/23 Losartan [Cozaar] 100 mg PO DAILY tab 12/03/23 Metoprolol Tartrate [Lopressor] 50 mg PO BID tab 12/03/23 Pantoprazole [Protonix] 40 mg PO AC-BRKFST tab 12/03/23 guaiFENesin [Mucinex] 600 mg PO Q12HR PRN tab 12/03/23 predniSONE [Deltasone] See Rx Instructions .ROUTE .COMPLEX #30 tab 12/03/23 HYDROcodone/APAP 10-325MG [[place] 10-325] 1 tab PO BID PRN 30 Days #60 tab 07/22/24 HYDROcodone/APAP 10-325MG [[place] 10-325] 1 tab PO BID PRN 30 Days #60 tab 07/22/24 Controlled Substance Measures - Controlled Substance Measures Is patient prescribed a controlled substance at discharge?: Yes When asked, does pt state using other controlled substances?: No If prescribed controlled substance>3 days was MAPS reviewed?: Yes
== END ==
LOC: PNWHC3 13:11
PROVIDERS: ATTEND Specialist
DX: B02.23 Postherpetic polyneuropathy
CPT/HCPCS: 99211

== ENCOUNTER → 2024-09-21 | Outpatient (CLI) | payer MEDICARE ==
[2024-09-21 13:54] VITALS: BP 158/78; PULSE 88; RESP 14
--- NOTE | 2024-09-21 14:55 | P.PAINPG ---
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 Pt states pain level is provoked at 4-6 /10 in intensity, constant, localized in the fingers and knees, sharp in character without shooting pain . Pain has no provocation. Pain is alleviated by PT x 6 wks which ended in Dec 2023, physician guided home stretches daily since Dec 2023, medications , topical, use of a wheelchair for ambulatory assistance, heat & ice, repositioning and rest . Interventional procedures include Medications include [place] 10/325mg #60, Neurontin, Robaxin, BioFreeze Gel REVIEW OF ORGAN SYSTEMS: CONSTITUTIONAL: No fevers or chills. No recent weight loss. NEUROLOGICAL: + numbness and tingling along the distal extremities. No seizure disorders or headaches. MUSCULOSKELETAL: + pain PSYCHIATRIC: Denies current depression or suicidal thoughts. Physical Examinations : Constitutional : Cooperative , not in acute distress . Neurologic : Cranial nerve II to XII intact. No focal neurological deficits. Psychiatric : alert & oriented x 3. Matching mood & appropriate affect. Judgment & insight intact. Musculoskeletal : Cervical Spine Motor strength in the deltoid and biceps: Normal right side. Normal Left side Motor strength biceps and the wrist extensors: Normal right side . Normal left side Motor strength in the triceps muscle: Normal right side. Normal left side Deep tendon reflexes: Normal at the biceps. Normal at Brachioradialis. Normal at triceps Vertebral body tenderness to deep palpation over Cervical facet loading test: positive bilaterally Spurling test: positive bilaterally Neck distraction test: positive bilaterally Pancho sign: positive bilaterally Lumbar spine BL Knee diffuse TTP Motor strength lower extremities ,thigh and legs 5/5 Right side , 5/5 Left side Deep tendon reflexes : Normal Knee Jerk. Normal Ankle Jerk Vertebral body tenderness over Lundberg Test positive Lumbar facet Loading Test: positive Right / positive Left Range of motion of the lumbar spine Flexion 30 degrees, extension 10 degrees Straight Leg Raise test: Left/ Right positive at degrees Janae test: positive right / positive left. Severe tenderness over the Sacroiliac joint on the Right / Left sides Gaenslen test: positive bilaterally Seated flexion test: positive bilaterally. Sacral spine : Severe tenderness over the Sacroiliac joint: right side / left side Range of motion: Flexion of the lumbar spine <60 degrees Range of motion: Extension of the lumbar spine <20 degrees Gaenslen's Test positive Janae test: positive right side / left side Thigh Thrust Test Sacral Thrust Test Assessment/ Plan : Post Herpetic Neuralgia, BL Knee DJD Recommendation of medication management. [place] 10/325mg #60 w 1 RF. Use, side effects, adverse reactions, safe storage discussed. Opiate/ narcotic agreement signed 03/26/24. UDS from 05/28/24 reviewed and consistent. All questions answered. I have spent greater than 30 minutes on patient care today. Dr Downey was available by phone for the evaluation of this patient. The time was used to review the medical records including relevant urine studies and Prescription history (MAPs), review of the available imaging, evaluation and examination of the patient, coordination of care with the medical staff and if applicable referring physicians, as well as creation of the medical record - Pain Location Bilateral Lower Back Non-Pharmacological Interventions: Inactivity, Position/Reposition, Sitting Pharmacological Interventions: PRN Medication, Scheduled Medication, Topical Medication PQRS Narrative: Hx Alcohol Use (MH) No Home Medications: Ambulatory Orders Budesonide-Formot 160-4.5 Mcg [Symbicort 160-4.5 Mcg Inhaler] 2 puff INHALATION RT-BID 09/20/20 metFORMIN HCL [Glucophage] 1,000 mg PO BID 09/20/20 Cholecalciferol [Vitamin D3 (25 Mcg = 1000 Iu)] 25 mcg PO DAILY 03/10/23 Fluvastatin Sodium [Fluvastatin ER] 80 mg PO HS 03/10/23 Loratadine [Claritin] 10 mg PO DAILY PRN 03/10/23 Aspirin 81 mg PO DAILY #30 tab 04/15/23 hydroCHLOROthiazide [Hydrodiuril] 25 mg PO DAILY #30 tab 04/15/23 ALPRAZolam [Xanax] 0.25 mg PO DAILY PRN #1 tab 12/03/23 Benzonatate [Tessalon Perles] 200 mg PO BID PRN cap 12/03/23 Budesonide [Pulmicort] 1 mg INHALATION RT-BID ml 12/03/23 Diltiazem Cd [Cardizem CD] 180 mg PO DAILY cap 12/03/23 INSULIN ASPART (NovoLOG) [NovoLOG (formulary)] 0 unit SQ ACHS each 12/03/23 INSULIN ASPART (NovoLOG) [NovoLOG (formulary)] 4 unit SQ AC-TID each 12/03/23 Insulin Detemir (Levemir) [Levemir] 12 unit SQ DAILY@0700 each 12/03/23 Ipratropium-Albuterol Nebulize [Duoneb 0.5 mg-3 mg/3 ml Soln] 3 ml INHALATION RT-Q4H PRN each 12/03/23 Lidocaine 4% Patch 1 patch TOPICAL DAILY patch 12/03/23 Losartan [Cozaar] 100 mg PO DAILY tab 12/03/23 Metoprolol Tartrate [Lopressor] 50 mg PO BID tab 12/03/23 Pantoprazole [Protonix] 40 mg PO AC-BRKFST tab 12/03/23 guaiFENesin [Mucinex] 600 mg PO Q12HR PRN tab 12/03/23 predniSONE [Deltasone] See Rx Instructions .ROUTE .COMPLEX #30 tab 12/03/23 HYDROcodone/APAP 10-325MG [[place] 10-325] 1 tab PO BID PRN 30 Days #60 tab 09/21/24 HYDROcodone/APAP 10-325MG [[place] 10-325] 1 tab PO BID PRN 30 Days #60 tab 09/21/24 Controlled Substance Measures - Controlled Substance Measures Is patient prescribed a controlled substance at discharge?: Yes When asked, does pt state using other controlled substances?: Yes If prescribed controlled substance>3 days was MAPS reviewed?: Yes
== END ==
LOC: PNWHC3 13:39
PROVIDERS: ATTEND Specialist
DX: M17.0 Bilateral primary osteoarthritis of knee (principal); B02.29 Other postherpetic nervous system involvement; Z88.8 Allergy status to other drugs, medicaments and biological substances
CPT/HCPCS: 99211